=== PATIENT | female | born 1945 | race African-American/Black ===

== ENCOUNTER 2016-10-26 13:06 | Observation (INO) ==
[2016-10-26] MEDS ORDERED: ENOXAPARIN 100 MG/ML SYRINGE SUBCUT STA (13:39)
[2016-10-26] MEDS ORDERED: ASPIRIN 325 MG TABLET PO STA ×2 (13:39→15:17)
--- NOTE | 2016-10-26 14:07 | XRay Report ---
XR chest 1V portable Indication: Chest pain. Chest one view: Comparison 05/16/2015. Given variation in technique, mild interstitial prominence of the lungs has developed, likely airways disease with scattered areas of peribronchial thickening present. No focal pneumonia shown. Heart size remains upper limits normal. Impression: Minimal airways disease such as bronchitis. PROCEDURE INTERPRETED AT [facility] DEPARTMENT OF RADIOLOGY Final Report Signed by: Eb Chacon M.D.
[2016-10-26 14:10] LABS: Basophils # 0.1 10*3/uL (0.0-0.2); Basophils % 0.7 % (0.0-0.8); Eosinophils # 0.1 10*3/uL (0.0-0.87); Eosinophils % 1.5 % (0.00-10.9); Hematocrit 42.3 VOL% (35.7-47.0); Hemoglobin 14.1 GM/DL (12.0-16.0); Immature Granulocytes % 0.5 %; Immature Granulocytes Absolute 0.04 #; Lymphocytes # 2.8 10*3/uL (1.4-4.0); Lymphocytes % 32.2 % (21.3-54.2); Mean Corpuscular HGB Conc 33.3 GM/DL (32-36); Mean Corpuscular Hemoglobin 31 PG (27-34); Mean Corpuscular Volume 91.6 FL (87-102); Mean Platelet Volume 9.9 FL (9.6-12.0); Monocytes # 0.8 10*3/uL (0.11-0.8); Monocytes % 8.7 % (1.7-12.7); Neutrophils % 56.4 % (38.7-73.9); Platelet Count 309 T/CUMM (130-400); Red Blood Count 4.62 MC/CUMM (3.8-5.5); Red Cell Distribution Width 12.9 % (9.3-17.3); White Blood Count 8.8 T/CUMM (4-12)
--- NOTE | 2016-10-26 14:10 | EKG Report ---
Stationary ECG Study [facility] ER Test Date: 10/26/2016 1:18:49 PM Pat Name: BETTY METZ Department: Room: Gender: F Fmd Teacher: Truong Charles : 1945 Requested by: Tarik Mcmanus Order Number: [id number] Reading MD: BRENDON BENSON Intervals [place] Rate: 91 P: 80 SC: 152 QRS: -67 QRSD: 90 T: 73 QT: 373 QTc: 422 Interpretive Statements SINUS RHYTHM POSSIBLE LEFT ATRIAL ENLARGEMENT ABNORMAL LEFT AXIS DEVIATION RSR (QR) IN V1/V2 CONSISTENT WITH RIGHT VENTRICULAR CONDUCTION DELAY SEPTAL INFARCT, AGE UNDETERMINED Electronically Signed On 10-27-16 09:31:12 CDT by BRENDON BENSON [email or web address]
[2016-10-26] MEDS ORDERED: ASPIRIN 325 MG TABLET ONE (14:18)
[2016-10-26] MEDS ORDERED: ENOXAPARIN 100 MG/ML SYRINGE SUBCUT ONE (14:18)
[2016-10-26 14:20] LABS: PT Patient Result 10.3 SECS
[2016-10-26 14:32] LABS: Alanine Aminotransferase 16 U/L (13-56); Alkaline Phosphatase 139 U/L (45-117); Aspartate Amino Transferase 12 U/L (0-37); Calcium 9.2 MG/DL (8.5-10.1)
[2016-10-26 14:33] LABS: Albumin 3.1 G/DL (3.4-5.0); Bilirubin,Total < 0.39 MG/DL (0.2-1.0); Blood Urea Nitrogen 17 MG/DL (7-18); Glucose 250 MG/DL (74-106); Magnesium 1.7 MG/DL (1.8-2.4); Osmolality,Calculated 282.8 MOS/KG (273-304); Potassium 3.6 MMOL/L (3.5-5.1); Sodium 137 MMOL/L (136-145); Total Protein 7.2 G/DL (6.4-8.3)
--- NOTE | 2016-10-26 15:13 | Emergency Department Note ---
Suzanna Suggs Gwan, am scribing for, and in the presence of, Tarik Guerrero MD 13:46. Yolanda Suggs Phillip K, MD, personally performed the services described in this documentation, ascribed by Brent Briseno in my presence, and it is both accurate and complete 511 . Arrival - Arrival Chief Complaint: Chest Pain Stated Complaint: chest tightness ED Nursing Triage Note: Pt c/o Chest tightness and pain with some occasional SOB since Wednesday. Mode of Arrival: Ambulatory Limitations: No Limitations Source: Patient, Old Records Reviewed, RN Notes Reviewed - History of Present Illness HPI Narrative: Patient is a 71 y/o female, with a hx of Pericarditis, who presents to the ED for further evaluation of chest tightness and intermittent SOB with an onset 2 days ago. Patient stated that she had a family member to 2 days ago and this is when her chest discomfort began. Patient stated that she has a hx of Pulmonary Embolism and Carotid Surgery performed. She continued to note that this pain is somewhat similar to that pain. Her discomfort is worsened with exacerbation. She continued to say that she is compliant with her low dose aspirin 1x a day but she did not take it today. While in ED, pt stated that she is not in any discomfort now. Patient denies any pain in calf of bilateral legs. She is followed by Dr. Carpio. No other problems/complaints reported in ED. Onset (ago): day(s) Consistency: constant Severity: moderate Allergies/Adverse Reactions: Allergies Allergy/AdvReac Type Severity Reaction Status Date / Time Penicillins Allergy RASH Verified 12/24/14 11:54 Home Medications: Home Medications Medication Instructions Recorded Confirmed Type Albuterol Sulfate [Proair HFA] 2 puff INH Q4H PRN 05/16/15 08/21/15 History Amlodipine Besylate 5 mg PO DAILY 05/16/15 08/21/15 History Aspirin [Ecotrin] 81 mg PO DAILY 05/16/15 08/21/15 History Atorvastatin [Lipitor] 20 mg PO DAILY 05/16/15 08/21/15 History Dexlansoprazole [Dexilant] 60 mg PO DAILY 05/16/15 08/21/15 History Furosemide Tab [Lasix Tab] 20 mg PO DAILY PRN 05/16/15 08/21/15 History Gabapentin Cap/Tab [Neurontin 300 mg PO TID 05/16/15 08/21/15 History Cap/Tab] Ipratropium/Albuterol Sulfate 3 ml INH QID 05/16/15 08/21/15 History [Iprat-Albut 0.5-3(2.5) mg/3 ml] Oxybutynin Chloride 5 mg PO TID 05/16/15 08/21/15 History Pioglitazone HCl/Metformin HCl 1 each PO BID 05/16/15 08/21/15 History [Actoplus Met 15 mg-500 mg Tab] Potassium Chloride Cap/Tab [K Dur] 10 meq PO DAILY PRN 05/16/15 08/21/15 History Triamterene/Hydrochlorothiazid 1 each PO DAILY 05/16/15 08/21/15 History [Triamterene-Hctz 37.5-25 mg Cp] Verapamil HCl [Verapamil Tab] 120 mg PO BID 05/16/15 08/21/15 History Atenolol [Tenormin] 25 mg PO DAILY #30 tablet 05/21/15 08/21/15 Rx Insulin Lispro [HumaLOG] 10 unit SUBCUT TID W/MEALS ml 05/21/15 08/21/15 Rx Cyclobenzaprine [Flexeril] 10 mg PO TID PRN 08/21/15 08/21/15 History Insulin Detemir [Levemir] 40 unit SUBCUT BEDTIME 08/21/15 08/21/15 History Magnesium Chloride [Mag Delay] 64 mg PO BID 08/21/15 08/21/15 History Sertraline [Zoloft] 25 mg PO DAILY 08/21/15 08/21/15 History Review of System - Review of System 12 point system: reviewed and no additional remarkable complaints except as stated - Review of System Cardiovascular: Present: chest pain, dyspnea on exertion Medical,Surgical,& Family Hx - Medical History Cardio: History of: Hypertension, PVD, Cardiovascular Problems (pericarditis 2007) Psychological: History of: Anxiety Disorders Neurology: History of: Migraine (states about 20 years ago), Peripheral Neuropathy No history of: Seizures Endocrine: History of: Diabetes Mellitus (IDDM), Dyslipidemia No history of: Diabetes Mellitus (NIDDM) Rheumatology: History of;: Fibromyalgia Respiratory: History of: Asthma, Bronchitis, COPD (Patient unsure if has.), Pulmonary Embolism (2008) Genitourinary: History of: Bladder Problem (Incontinent at times) Gastrointestinal: History of: GERD Musculoskeletal: History of: Back/Neck Problems Other: History of: Anaphylaxis (penicillin), Miscellaneous Medical Problems ( FEMORAL STENT) - Surgical History Cardiac Surgeries: Sugical HX of: Cardiac Catheterization (2007) Comment Only: Cardiac Surgery (heart cath without stent) HEENT Surgeries: Surgical HX of: Eye Surgery (cataract surgery) Abdominal Surgeries: Surgical HX of: EGD - Family History Family History: Reports;: Family Cancer (breast cancer--mother), Family Hypertension (father) - Social History Smoking Status: Former smoker Exam Vital Signs: Vital Signs Temperature 96.9 F L 10/26/16 13:17 Pulse Rate 96 H 10/26/16 13:17 Respiratory Rate 18 10/26/16 13:17 Blood Pressure 166/114 10/26/16 13:17 O2 Sat by Pulse Oximetry 98 10/26/16 13:17 - General General appearance: alert, in no apparent distress - Head Head exam: Present: atraumatic, normocephalic - Eye Eye exam: Present: normal appearance, PERRL, EOMI - ENT ENT exam: Present: normal oropharynx, mucous membranes moist, TM's normal bilaterally, normal external ear exam - Neck Neck exam: Present: full ROM, trachea midline. Absent: tenderness - Chest Chest inspection: Present: symmetric chest wall rise. Absent: tenderness - Respiratory Respiratory exam: Present: normal lung sounds bilaterally. Absent: respiratory distress - Cardiovascular Cardiovascular exam: Present: regular rate, normal rhythm, normal heart sounds. Absent: murmur - Abdominal Exam Abdominal exam: Present: soft, normal bowel sounds. Absent: distention, tenderness - Extremities Exam Extremities exam: Present: other (trace edema bilaterally) - Back Exam Back exam: Present: full ROM. Absent: tenderness - Neurological Exam Neurological exam: Present: alert, oriented X3, CN II-XII intact. Absent: motor sensory deficit - Psychiatric Psychiatric exam: Present: normal affect, normal mood - Skin Skin exam: Present: warm, dry, intact, normal color Course Course Narrative: Patient discussed with Dr. Kevin Carpio. Results - Labs CBC & BMP: 10/26/16 13:59 10/26/16 13:59 Lab Results: I have reviewed the patients labs Labs: Laboratory Tests 10/26/16 13:59 WBC 8.8 RBC 4.62 Hgb 14.1 Hct 42.3 Plt Count 309 Laboratory Tests 10/26/16 10/26/16 13:59 13:59 INR 1.0 PT Patient/Control Mix 10.3 Sodium 137 Potassium 3.6 Chloride 100 Carbon Dioxide 28 BUN 17 Creatinine 0.90 Glucose 250 H Magnesium 1.7 L Alkaline Phosphatase 139 H Albumin 3.1 L Globulin 4.1 H Albumin/Globulin Ratio 0.7 L - EKG EKG results: interpreted by ELSIE, sinus rhythm (Possible old septal AK) - Diagnostic Findings Procedure: Chest x-ray: report reviewed by me (Minimal airways disease such as bronchitis.) Disposition Clinical Impression: Chest pain, Unstable angina pectoris Case discussed with: patient Disposition: Still a Patient Condition: Guarded Additional Instructions: Admit to Dr. Carpio.
[2016-10-26] MEDS ORDERED: ACETAMINOPHEN 325 MG TABLET PO PRN (15:17)
[2016-10-26] MEDS ORDERED: DOCUSATE SODIUM 100 MG CAPSULE PO PRN (15:17)
[2016-10-26] MEDS ORDERED: ONDANSETRON 4 MG/2 ML VIAL IV PRN (15:17)
[2016-10-26] MEDS ORDERED: MAGNESIUM SULF RIDER 4 GM in PREMIX 1 EACH IV PRN (15:17)
[2016-10-26] MEDS ORDERED: MAGNESIUM SULF RIDER 2 GM in PREMIX 1 EACH IV PRN (15:17)
--- NOTE | 2016-10-26 18:28 | EKG Report ---
Stationary ECG Study [facility] Test Date: 10/26/2016 6:26:46 PM Pat Name: BETTY METZ Department: Room: 279 Gender: F [employer] Hand: FARHEEN : 1945 Requested by: Tarik Mcmanus Order Number: [id number] Reading MD: JAYRO ARNOLD Intervals [place] Rate: 83 P: 56 MN: 170 QRS: -49 QRSD: 99 T: 31 QT: 387 QTc: 427 Interpretive Statements SINUS RHYTHM WITH SINUS ARRHYTHMIA LEFT ATRIAL ABNORMALITY PATTERN CONSISTENT WITH PULMONARY DISEASE INCOMPLETE RIGHT BUNDLE BRANCH BLOCK LEFT ANTERIOR FASCICULAR BLOCK NONSPECIFIC T-WAVE ABNORMALITY Electronically Signed On 10-27-16 15:45:05 CDT by JAYRO ARNOLD [email or web address]
[2016-10-26] MEDS ORDERED: CYCLOBENZAPRINE 10 MG TABLET PO PRN (20:04)
[2016-10-26] MEDS ORDERED: ALBUTEROL 2.5 MG/3 ML NEB RESP TX PRN (20:04)
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
[2016-10-26] MEDS ORDERED: ATORVASTATIN 20 MG TABLET PO SCH (21:00)
[2016-10-26] MEDS ORDERED: NON-FORMULARY MEDICATION (Insulin Degludec [Tresiba Flextouch U-200] 50 UNIT) SUBCUT SCH (21:00)
[2016-10-26] MEDS ORDERED: SERTRALINE 25 MG TABLET PO PRN (21:00)
[2016-10-26] MEDS: MAGNESIUM CHLORIDE 64 MG TABLET PO SCH (21:35)
[2016-10-26] MEDS: VERAPAMIL 120 MG TABLET PO SCH (21:35)
[2016-10-26] MEDS: GABAPENTIN 300 MG CAPSULE PO SCH (21:36)
--- NOTE | 2016-10-27 07:34 | Family Practice Progress Note ---
Family Practice - PN: Subj Interval history: Patient states she had a good not only had a very brief episode of chest pain. Her cardiac enzymes were all normal this morning. Cnc Operator Programmer is to see her. She has multiple risk factors for coronary artery disease including peripheral vascular disease, diabetes mellitus, hypertension and past history of tobacco abuse. Exam (Progress Note) - Constitutional Vitals: Period Temp Pulse Resp BP Sys/Stock Pulse Ox Last 24 Hr 97.3 F-98.0 F 69-98 15-20 137-175/67-93 16-98 Exam: Objective reveals a well-developed black female no acute distress. She is able give good history. Cardiovascular: Heart rates regular without murmurs or gallops. Respiratory: Lungs clear to auscultation bilaterally. Abdomen: Exam soft and nontender to palpation. Results - Labs CBC & BMP: 10/26/16 13:59 10/26/16 13:59 Lab Results: I have reviewed the past 24 hour labs Assessment and Plan (1) Atypical chest pain Status: Acute Assessment and plan: 10/26/2016: We will continue cardiac isoenzymes. Cardiology has been consulted. Patient does have an impressive array of risk factors for coronary artery disease and she is suffering through multiple stressors at present. 10/27/2016: Cardiac isoenzymes remained negative. Cardiology has been consulted. Patient was reassured that no evidence of an acute NE is present. Current Visit: Yes
[2016-10-27] MEDS ORDERED: metFORMIN 500 MG TABLET PO SCH (08:00)
[2016-10-27] MEDS ORDERED: PIOGLITAZONE 15 MG TABLET PO SCH (08:00)
[2016-10-27] MEDS ORDERED: PANTOPRAZOLE 40 MG TABLET PO SCH (09:00)
[2016-10-27] MEDS ORDERED: ASPIRIN EC 81 MG TABLET PO SCH (09:00)
[2016-10-27] MEDS ORDERED: OXYBUTYNIN 5 MG TABLET PO SCH (09:00)
[2016-10-27] MEDS ORDERED: TRIAMTERENE/HCTZ 37.5-25 MG CAPSULE PO SCH (09:00)
[2016-10-27] MEDS: MAGNESIUM CHLORIDE 64 MG TABLET PO SCH (09:07)
[2016-10-27] MEDS: VERAPAMIL 120 MG TABLET PO SCH (09:07)
[2016-10-27] MEDS: GABAPENTIN 300 MG CAPSULE PO SCH ×2 (09:08→14:08)
[2016-10-27] MEDS: INSULIN LISPRO 100 UNIT/ML SUBCUT SCH ×2 (10:47→13:10)
--- NOTE | 2016-10-27 11:49 | Cardiology Consult Note ---
Assessment and Plan - Time spent with patient Time spent with patient: Greater than 30 minutes (1) Atypical chest pain Status: Acute Assessment and plan: Cardiac biomarkers have been negative. EKG does not reveal any acute findings and is unchanged from previous EKGs. D-dimer is noted to be 0.6 making pulmonary embolism unlikely. Patient's symptoms are very atypical and could possibly secondary her severe stress. Patient has ruled out for myocardial infarction. After further discussing with Dr. Bonner, I think that it is reasonable to set up patient for outpatient stress testing with Dr. Vega. She is agreeable for this. She will be given an appointment with Dr. Vega for stress testing within 1 week. Further plan and addendum to follow per Dr. Bonner. Current Visit: Yes (2) Peripheral artery disease Status: Acute Assessment and plan: This is clinically stable at this time. Will continue current plan of care. Current Visit: No (3) Diabetes mellitus Status: Chronic Assessment and plan: Defer management of this to attending. Current Visit: No Qualifiers: Diabetes mellitus type: type 2 Diabetes mellitus complication detail: with chronic kidney disease Chronic kidney disease stage: stage 3 (moderate) (4) Essential hypertension Status: Chronic Assessment and plan: Blood pressure is suboptimally controlled. I have added Norvasc at this time. We will continue to adjust medications as needed throughout her hospital stay. Current Visit: No (5) Hypomagnesemia Status: Acute Assessment and plan: Magnesium replacement protocol has been ordered. Will check magnesium in the a.m. Current Visit: No (6) Hyperlipidemia Status: Chronic Assessment and plan: Continue current plan of care with lipid lowering agent. Current Visit: Yes History of Present Illness - Data of Consult Patient: known to practice within the last 3 years Consult date: 10/27/16 Requesting Physician: Kevin Carpio Primary care physician: Kevin Carpio - Consult Narrative Reason for consult: Chest pain History of present illness: Bevel Operator: Dr. Vega PCP: Dr. Kevin Carpio Cardiology consult: Chest pain Ms. Fenton is a 71 year old female without known history of coronary artery disease, routinely followed by Dr. Vega. Patient presented to the emergency department yesterday for further evaluation of chest tightness. She has cardiac risk factors significant for diabetes, hypertension peripheral vascular disease, hyperlipidemia, advanced age, sedentary lifestyle and former smoker (quit 8 years ago). Patient denies any significant family history of coronary artery disease. Patient has past medical history of peripheral vascular disease (followed by Dr. Powell), pericardial effusion with pericardial centesis and pulmonary embolism. Patient had right heart catheterization in [address] Vega. At that time PC pressure is noted to be 18, PA pressure about 35/18, RV pressure 35/15 and RA pressure was about 12-15 mmHg. Patient was last seen by Dr. Vega June 2016. At that time, she was without complaints. Patient was in her usual state of health until Wednesday when she began to experience brief episodes of chest tightness. She reports that this originated in her right chest and throughout the day and eventually moved to the middle portion of her chest. This was nonradiating. She describes his pain as a chest tightness that would only last seconds and resolved on its own. It is associated with mild shortness of breath. She denies nausea, diaphoresis and heart racing/palpitations. Patient tells me that at first, she felt that her symptoms were secondary to her GERD. She is unable to identify any specific aggravating or alleviating factors. She reports that this was not worsened with exertion. She also confirms that she has been under a great deal of stress over the past 2 months. She has had several deaths in the family and multiple issues at home. As she was telling me about her stressors, she tells me that she began feeling the same chest tightness that she presented to the emergency room with. This only lasted a couple of seconds and was quickly resolved on its own. Her continued symptoms were very concerning for her and she felt that it was necessary to be further evaluated in the emergency department. Upon arrival to the ER, she reports that her discomfort was not relieved by nitroglycerin. Patient was admitted under family medicine service' s and housed on the telemetry floor. Cardiology has been consulted to further evaluate her chest discomfort. Of note, patient denies any chest pain, heaviness and tightness with exertion or walking. She reports that she cleans her house regularly and she can perform these activities without any chest pain, heaviness and tightness. She denies any recent change in her exercise tolerance or breathing pattern. She denies dyspnea on exertion as well as easy fatigability. She also denies fever , chills, cough, nausea, vomiting, melena, abdominal pain, orthopnea, PND and lower extremity swelling. Patient was seen and examined on the telemetry unit. She is currently without chest pain, heaviness and tightness. Her troponin has been negative 4 checks. EKG does not reveal any acute findings and is unchanged from previous EKGs. D -dimer 0.6. On exam, her chest pain is not reproducible with palpation. Echocardiogram has been ordered at this time. I will further discuss this with Dr. Bonner. Further plan and addendum to follow. CC: Kevin Carpio MD - Home Medications and Allergies Home Medications: Home Medications Medication Instructions Recorded Confirmed Type Albuterol Sulfate [Proair HFA] 2 puff INH Q4H PRN 05/16/15 10/26/16 History Aspirin [Ecotrin] 81 mg PO DAILY 05/16/15 10/26/16 History Atorvastatin [Lipitor] 20 mg PO BEDTIME 05/16/15 10/26/16 History Dexlansoprazole [Dexilant] 60 mg PO DAILY 05/16/15 10/26/16 History Gabapentin Cap/Tab [Neurontin 300 mg PO TID 05/16/15 10/26/16 History Cap/Tab] Ipratropium/Albuterol Sulfate 3 ml INH BID PRN 05/16/15 10/26/16 History [Iprat-Albut 0.5-3(2.5) mg/3 ml] Oxybutynin Chloride 5 mg PO DAILY 05/16/15 10/26/16 History Pioglitazone HCl/Metformin HCl 1 each PO BID 05/16/15 10/26/16 History [Actoplus Met 15 mg-500 mg Tab] Triamterene/Hydrochlorothiazid 1 each PO DAILY 05/16/15 10/26/16 History [Triamterene-Hctz 37.5-25 mg Cp] Verapamil HCl [Verapamil Tab] 120 mg PO BID 05/16/15 10/26/16 History Cyclobenzaprine [Flexeril] 10 mg PO TID PRN 08/21/15 10/26/16 History Magnesium Chloride [Mag Delay] 64 mg PO BID 08/21/15 10/26/16 History Sertraline [Zoloft] 25 mg PO BEDTIME PRN 08/21/15 10/26/16 History Insulin Aspart [NovoLOG FlexPen] 15 unit SUBCUT TID 10/26/16 10/26/16 History Insulin Degludec [Tresiba 50 unit SUBCUT BEDTIME 10/26/16 10/26/16 History Flextouch U-200] Allergies/Adverse Reactions: Allergies Allergy/AdvReac Type Severity Reaction Status Date / Time Penicillins Allergy RASH Verified 12/24/14 11:54 - Constitutional Constitutional: Absent: chills, fatigue, fever(s), lethargy, malaise, weakness, weight gain, weight loss - Cardiovascular Cardiovascular: Present: as per HPI, chest pain at rest, dyspnea. Absent: chest pain with activity, diaphoresis, dyspnea on exertion, edema, radiating jaw , neck or arm pain, lightheadedness, orthopnea, palpitations, PND - Respiratory Respiratory: Present: dyspnea. Absent: cough, hemoptysis, dyspnea on exertion, wheezing, snoring, pain on inspiration, change in phlegm color - Gastrointestinal Gastrointestinal: Present: heartburn. Absent: abdominal pain, change in bowel habits, coffee ground emesis, constipation, diarrhea, hematemesis, hematochezia , loose stools, melena, nausea, vomiting - Neurological Neurological: Absent: abnormal gait, abnormal speech, behavioral changes, dizziness, syncope - Psychiatric Psychiatric: Present: anxiety, depression - Hematologic/Lymphatic Hematologic/Lymphatic: Absent: easy bleeding, easy bruising, lymphadenopathy Medical,Surgical,& Family Hx - Medical History Cardio: History of: Hypertension, PVD, Cardiovascular Problems (pericarditis 2007) Psychological: History of: Anxiety Disorders Neurology: History of: Migraine (states about 20 years ago), Peripheral Neuropathy Endocrine: History of: Diabetes Mellitus (NIDDM), Dyslipidemia Rheumatology: History of;: Fibromyalgia Respiratory: History of: Asthma, Bronchitis, COPD (Patient unsure if has.), Pulmonary Embolism (2007) Genitourinary: History of: Bladder Problem (Incontinent at times) Gastrointestinal: History of: GERD Musculoskeletal: History of: Back/Neck Problems Other: History of: Anaphylaxis (penicillin), Miscellaneous Medical Problems ( FEMORAL STENT) - Surgical History Cardiac Surgeries: Sugical HX of: Cardiac Catheterization (Right heart catheterization in 2006) HEENT Surgeries: Surgical HX of: Eye Surgery (cataract surgery) Abdominal Surgeries: Surgical HX of: EGD - Family History Family History: Reports;: Family Cancer (breast cancer--mother), Family Hypertension (father) Denies;: Family Heart Disease - Social History Smoking Status: Former smoker Frequency of Alcohol Use: None Type of Drug Use: None Physical Examination Vital Signs Temp Pulse Resp BP Pulse Ox 96.9 F L 96 H 18 166/114 98 10/26/16 13:17 10/26/16 13:17 10/26/16 13:17 10/26/16 13:17 10/26/16 13:17 General: Present: Appears Well, No Apparent Distress HEENT: Present: Normocephaly Neck: Present: Supple Neck, Midline Trachea, No JVD/HJR Cardiac: Present: Reg Rate and Rhythm, Regular Rate, Regular Rhythm, S1/S2, No Murmur Lungs: Present: Normal Exam, Clear Ascult./Percussion, Normal Breath Sounds, No Wheeze, Rales, Rhonchi Abdomen: Present: Soft, Active Bowel Sounds, No Masses, Non-Tender. Absent: Firm, Distended Skin: Present: Clear. Absent: Rash, Suspicious Lesions, Ulceration Extremities: Present: Normal Gait, No Clubbing, No Cyanosis, No Edema, Normal Upper Extr. Pulses (Decreased pulse noted to right lower extremity. Patient has history of PVD.) Result/EKG - Labs CBC & BMP: 10/26/16 13:59 10/26/16 13:59 Lab Results: I have reviewed the past 24 hour labs Labs: Laboratory Results - last 24 hr 10/26/16 10/26/16 10/26/16 17:44 19:48 20:24 POC Glucose 346 H Troponin I < 0.015 < 0.015 10/26/16 22:07 POC Glucose Troponin I < 0.015 Specialty Discharge - Follow Up or Referrals Follow up with: Francis Vega MD [Physician] - 1 Week (Patient will need follow-up appointment with Dr. Vega within the week for outpatient stress testing.)
[2016-10-27] MEDS ORDERED: POTASSIUM CHLORIDE RIDER 10 MEQ in PREMIX 1 EACH IV ONE (12:02)
[2016-10-27] MEDS ORDERED: POTASSIUM CHLORIDE RIDER 10 MEQ in PREMIX 1 EACH IV PRN (12:07)
[2016-10-27] MEDS ORDERED: amLODIPine 5 MG TABLET PO SCH (12:30)
[2016-10-27] MEDS ORDERED: POTASSIUM CHLORIDE 20 MEQ TABLET PO ONE (13:45)
[2016-10-27 15:47] VITALS: BP 139/66
--- NOTE | 2016-10-27 16:02 | Discharge Summary ---
Hospital Course - Hospital Course Hospital Course: Patient is a 71-year-old black female who was admitted to the emergency room with substernal chest pain. Patient told me the pain was very brief but had been occurring frequently over the course of the last week. Patient been involved in multiple stressful events in her family and home. Patient does have multiple risk factors for coronary artery disease but her cardiac isoenzymes remained negative and her EKG was unremarkable. I told patient I felt her main issue was with her stressors and cardiology saw her and felt she could be followed up as an outpatient. I certainly agree with this plan has does the patient. She will be discharged today. Diagnosis - Discharge Diagnosis (1) Atypical chest pain Status: Acute Specialty Discharge - Follow Up or Referrals Follow up with: Francis Vega MD [Physician] - 10/29/16 7:45 am (Do not eat or drink after midnight for your stress test on October 29 at 7:45 AM. Patient will need follow-up appointment with Dr. Vega within the week for outpatient stress testing.) Discharge Plan - Discharge Data Disposition: Disch To Home/Self Care Condition at Discharge: Stable Discharge Diet: advance to your usual diet Activity: resume usual activities as tolerated Hygiene: no restrictions Weight Bearing at Discharge: full weight bearing Driving: no restrictions Contact your physician if you experience:: Shortness of breath - Discharge Medications New Acetaminophen Tab [Tylenol Tab] 325 mg PO Q4H PRN #0 tablet PRN Reason: fever, headache/body aches Continue Ipratropium/Albuterol Sulfate [Iprat-Albut 0.5-3(2.5) mg/3 ml] 3 ml INH BID PRN PRN Reason: Shortness Of Breath Dexlansoprazole [Dexilant] 60 mg PO DAILY Verapamil HCl [Verapamil Tab] 120 mg PO BID Triamterene/Hydrochlorothiazid [Triamterene-Hctz 37.5-25 mg Cp] 1 each PO DAILY Albuterol Sulfate [Proair HFA] 2 puff INH Q4H PRN PRN Reason: Shortness Of Breath/Wheezing Oxybutynin Chloride 5 mg PO DAILY Gabapentin Cap/Tab [Neurontin Cap/Tab] 300 mg PO TID Atorvastatin [Lipitor] 20 mg PO BEDTIME Aspirin [Ecotrin] 81 mg PO DAILY Pioglitazone HCl/Metformin HCl [Actoplus Met 15 mg-500 mg Tab] 1 each PO BID Sertraline [Zoloft] 25 mg PO BEDTIME PRN PRN Reason: Sleep Magnesium Chloride [Mag Delay] 64 mg PO BID Cyclobenzaprine [Flexeril] 10 mg PO TID PRN PRN Reason: Spasms Insulin Aspart [NovoLOG FlexPen] 15 unit SUBCUT TID Insulin Degludec [Tresiba Flextouch U-200] 50 unit SUBCUT BEDTIME - Follow Up or Referral Follow Up: Francis Vega MD [Physician] - 10/29/16 7:45 am (Do not eat or drink after midnight for your stress test on , October 29 at 7:45 AM. Patient will need follow-up appointment with Dr. Vega within the week for outpatient stress testing.) Kevin Carpio MD [Family Provider] - 1 Month - Forms/Instructions Instructions: Chest Pain (DC) Exam - Constitutional Vitals: Period Temp Pulse Resp BP Sys/Stock Pulse Ox Last 24 Hr 97.3 F-98.0 F 65-98 15-20 137-175/58-93 95-98 Exam: Objective reveals a well-developed black female no acute distress. She is able give good history. Cardiovascular: Heart rates regular without murmurs or gallops. Respiratory: Lungs clear to auscultation bilaterally. Abdomen: Exam soft and nontender to palpation. Discharge Results Procedures and tests throughout hospitalization: Pending Orders 10/28/16 04:00 BMP w/ Mg [Basic Metabolic Panel w/Mg] IN AM CBC [Comp Blood Count Auto Diff] IN AM 10/29/16 04:00 BMP w/ Mg [Basic Metabolic Panel w/Mg] IN AM CBC [Comp Blood Count Auto Diff] IN AM 10/30/16 04:00 BMP w/ Mg [Basic Metabolic Panel w/Mg] IN AM CBC [Comp Blood Count Auto Diff] IN AM Labs on day of discharge: Labs from last 24 hours 10/27/16 10/26/16 10/26/16 12:27 22:07 20:24 POC Glucose 280 H 346 H Troponin I < 0.015 10/26/16 10/26/16 19:48 17:44 POC Glucose Troponin I < 0.015 < 0.015 Cardiac isoenzymes remain negative. DS: Provider Date of admission: 10/26/16 15:42 Primary care physician: . No PCP Attending physician on admission: Kevin Carpio MD Discharging clinician: Kevin Carpio MD Expected date of discharge: 10/27/16
--- NOTE | 2016-10-28 13:24 | ECHO Report ---
JossyNaman verakumar Exam Date: 10/27/2016 10:28 Referring Physician: Technologist: Kaci Painting CHRISTOPHER Age: 71 Ht (in): 63 Wt (lb): 202 Gender: F Exam Location: [facility] Echo Indications: Chest pain, unspecified, Dyspnea, unspecified, Peripheral vascular disease, unspecified, IDDM BP: 153 / 69 HR: 74 Rhythm: Sinus Technical Quality: IMPRESSIONS Left ventricular ejection fraction is estimated at 55-60 %. Mild concentric left ventricular hypertrophy. Trace mitral valve regurgitation. Trace tricuspid regurgitation. MEASUREMENTS (Male / Female) Normal Values 2D ECHO LV Diastolic Diameter PLAX 4.0 cm 4.2 - 5.9 / 3.9 - 5.3 cm LV Systolic Diameter PLAX 3.0 cm LV Fractional Shortening PLAX 23.9 % IVS Diastolic Thickness 1.2 cm 0.6 - 1.0 / 0.6 - 0.9 cm LVPW Diastolic Thickness 1.2 cm 0.6 - 1.0 / 0.6 - 0.9 cm RV Internal Dim ED PLAX 2.3 cm Aortic Root Diameter 2.8 cm LA Systolic Diameter LX 3.4 cm 3.0 - 4.0 / 2.7 - 3.8 cm DOPPLER TR Peak Velocity 212.0 cm/s TR Peak Gradient 18.0 mmHg FINDINGS Left Ventricle Normal left ventricular cavity size. Mild concentric left ventricular hypertrophy. Left ventricular ejection fraction is estimated at 55-60 %. Right Ventricle The right ventricle is normal in size and function. Right Atrium Normal right atrium. Left Atrium Normal left atrium. Mitral Valve Morphologically normal mitral valve. Trace mitral valve regurgitation. Aortic Valve Morphologically normal aortic valve without significant sclerosis or stenosis. There is no aortic regurgitation. Tricuspid Valve Morphologically normal tricuspid valve. Trace tricuspid regurgitation. Pulmonary artery systolic pressure is normal. Pulmonic Valve Morphologically normal pulmonic valve without significant stenosis. There is no pulmonic regurgitation. Pericardium Normal pericardium without effusion. Aorta Normal ascending aorta dimension. Jac Bonner (Electronically Signed) Final Date: 28 Oct 2016 13:23
== END 2016-10-27 17:35 | disposition home or self-care (01) ==
LOC: N.ED 13:06 → N.EDINP 13:06 → N.TELES 16:22
PROVIDERS: ADMIT Family Medicine; ATTEND Family Medicine

== ENCOUNTER 2019-03-07 17:34 | Inpatient (IN) ==
[2019-03-07] MEDS ORDERED: HYDROmorphone 2 MG/1 ML VIAL IV STA (18:17)
[2019-03-07] MEDS ORDERED: ONDANSETRON 4 MG/2 ML VIAL IV ONE (18:18)
[2019-03-07 18:24] LABS: Basophils # 0.1 10*3/uL (0.0-0.2); Basophils % 0.6 % (0.0-0.8); Eosinophils # 0.2 10*3/uL (0.0-0.87); Eosinophils % 1.7 % (0.00-10.9); Hematocrit 38.3 VOL% (35.7-47.0); Hemoglobin 12.4 GM/DL (12.0-16.0); Immature Granulocytes % 1.1 %; Immature Granulocytes Absolute 0.16 #; Lymphocytes % 13.7 % (21.3-54.2); Mean Corpuscular HGB Conc 32.4 GM/DL (32-36); Mean Corpuscular Volume 93.4 FL (87-102); Mean Platelet Volume 9.7 FL (9.6-12.0); Monocytes % 11.2 % (1.7-12.7); Neutrophils % 71.7 % (38.7-73.9); Platelet Count 441 T/CUMM (130-400); Red Cell Distribution Width 13.7 % (9.3-17.3); White Blood Count 14.4 T/CUMM (4-12)
[2019-03-07] MEDS ORDERED: HEPARIN 5,000 UNIT/1 ML VIAL IV ONE (18:26)
[2019-03-07 18:38] LABS: Calcium 9.3 MG/DL (8.5-10.1); Osmolality,Calculated 274.2 MOS/KG (273-304)
[2019-03-07] MEDS: HEPARIN DRIP 25,000 UNITS/500 ML PREMIX IV SCH (18:45)
[2019-03-07 19:06] LABS: PT Patient Result 10.5 SECS (9.6-12.2); Partial Thromboplastin Time 30.1 SECS (20.8-36.0)
[2019-03-07] MEDS ORDERED: GLUCAGON 1 MG VIAL IM PRN (19:18)
[2019-03-07] MEDS ORDERED: ONDANSETRON 4 MG/2 ML VIAL IV PRN (19:18)
[2019-03-07] MEDS: GABAPENTIN 300 MG CAPSULE PO SCH (21:42)
[2019-03-07] MEDS: INSULIN GLARGINE 100 UNIT/ML SUBCUT SCH (21:44)
[2019-03-08 05:29] LABS: Basophils # 0.1 10*3/uL (0.0-0.2); Basophils % 0.7 % (0.0-0.8); Eosinophils # 0.3 10*3/uL (0.0-0.87); Eosinophils % 2.1 % (0.00-10.9); Hematocrit 37.2 VOL% (35.7-47.0); Hemoglobin 11.9 GM/DL (12.0-16.0); Immature Granulocytes % 1.2 %; Immature Granulocytes Absolute 0.17 #; Lymphocytes # 2.9 10*3/uL (1.4-4.0); Lymphocytes % 19.8 % (21.3-54.2); Mean Corpuscular Volume 94.4 FL (87-102); Mean Platelet Volume 9.7 FL (9.6-12.0); Monocytes % 13.1 % (1.7-12.7); Neutrophils % 63.1 % (38.7-73.9); Platelet Count 447 T/CUMM (130-400); Red Blood Count 3.94 MC/CUMM (3.8-5.5); Red Cell Distribution Width 13.9 % (9.3-17.3); White Blood Count 14.6 T/CUMM (4-12)
[2019-03-08] MEDS ORDERED: HEPARIN 5,000 UNIT/1 ML VIAL IV ONE (06:11)
[2019-03-08] MEDS ORDERED: PANTOPRAZOLE 40 MG TABLET PO SCH (09:00)
[2019-03-08] MEDS: INSULIN LISPRO 100 UNIT/ML SUBCUT SCH ×2 (09:28→17:45)
[2019-03-08] MEDS: VERAPAMIL 120 MG TABLET PO SCH (09:29)
[2019-03-08] MEDS: TRIAMTERENE/HCTZ 37.5-25 MG CAPSULE PO SCH (09:30)
[2019-03-08] MEDS: PANTOPRAZOLE 40 MG TABLET PO SCH (09:35)
[2019-03-08] MEDS: ATORVASTATIN 20 MG TABLET PO SCH (09:35)
[2019-03-08] MEDS: GABAPENTIN 300 MG CAPSULE PO SCH ×2 (09:35→20:44)
[2019-03-08] MEDS: BISOPROLOL 5 MG TABLET PO SCH (09:36)
[2019-03-08] MEDS: HEPARIN DRIP 25,000 UNITS/500 ML PREMIX IV SCH ×2 (19:17→19:54)
[2019-03-08] MEDS: INSULIN GLARGINE 100 UNIT/ML SUBCUT SCH (20:46)
[2019-03-09] MEDS ORDERED: VANCOMYCIN INJ 1,000 MG in SODIUM CHLORIDE 0.9% 250 ML IV ONE (06:30)
[2019-03-09] MEDS: VERAPAMIL 120 MG TABLET PO SCH ×2 (07:41→13:57)
[2019-03-09] MEDS: TRIAMTERENE/HCTZ 37.5-25 MG CAPSULE PO SCH ×2 (07:41→13:57)
[2019-03-09] MEDS: BISOPROLOL 5 MG TABLET PO SCH ×2 (07:41→13:58)
[2019-03-09] MEDS: PANTOPRAZOLE 40 MG TABLET PO SCH ×2 (07:42→13:58)
[2019-03-09] MEDS: INSULIN LISPRO 100 UNIT/ML SUBCUT SCH ×2 (07:49→18:09)
[2019-03-09] MEDS ORDERED: THROMBIN TOPICAL (RECOMBINANT) 5,000 UNIT VIAL TOP ONE (09:06)
[2019-03-09] MEDS ORDERED: HEPARIN 5,000 UNIT/1 ML VIAL ONE (09:06)
[2019-03-09] MEDS ORDERED: VANCOMYCIN 500 MG VIAL ONE (09:06)
[2019-03-09] MEDS ORDERED: LIDOCAINE 1% 20 ML VIAL ONE (09:06)
[2019-03-09] MEDS ORDERED: TISSUE ADHESIVE 1 EACH APPLICATOR TOP ONE (09:07)
[2019-03-09] MEDS ORDERED: LACTATED RINGERS 1,000 ML IV SCH ×2 (09:30→13:30)
[2019-03-09] MEDS ORDERED: VANCOMYCIN 1,000 MG VIAL ONE (10:24)
[2019-03-09] MEDS ORDERED: LIDOCAINE 2% 5 ML VIAL ONE (13:13)
[2019-03-09] MEDS ORDERED: SEVOFLURANE 1 UNIT/15 MINUTE INH ONE (13:14)
[2019-03-09] MEDS ORDERED: ROCURONIUM 100 MG/10 ML VIAL IV ONE (13:14)
[2019-03-09] MEDS ORDERED: ETOMIDATE 40 MG/20 ML VIAL IV ONE (13:14)
[2019-03-09] MEDS ORDERED: fentaNYL 100 MCG/2 ML VIAL ONE (13:14)
[2019-03-09] MEDS ORDERED: MIDAZOLAM 2 MG/2 ML VIAL ONE (13:14)
[2019-03-09] MEDS ORDERED: hydrALAZINE 20 MG/1 ML VIAL IV ONE (13:40)
[2019-03-09] MEDS ORDERED: hydrALAZINE 20 MG/1 ML VIAL ONE (13:41)
[2019-03-09] MEDS: ASPIRIN EC 81 MG TABLET PO SCH (13:57)
[2019-03-09] MEDS: GABAPENTIN 300 MG CAPSULE PO SCH ×2 (13:58→21:59)
[2019-03-09] MEDS: ATORVASTATIN 20 MG TABLET PO SCH (13:58)
[2019-03-09] MEDS ORDERED: HYDROmorphone 2 MG/1 ML VIAL ONE (14:00)
[2019-03-09] MEDS ORDERED: ONDANSETRON 4 MG/2 ML VIAL ONE (14:00)
[2019-03-09] MEDS ORDERED: ONDANSETRON 4 MG/2 ML VIAL IV PRN (14:06)
[2019-03-09] MEDS ORDERED: HYDROmorphone 2 MG/1 ML VIAL IV PRN (14:06)
[2019-03-09] MEDS: HYDROmorphone 2 MG/1 ML VIAL IV PRN ×3 (16:34→23:33)
[2019-03-09] MEDS: INSULIN GLARGINE 100 UNIT/ML SUBCUT SCH (21:59)
[2019-03-10] MEDS: HYDROmorphone 2 MG/1 ML VIAL IV PRN ×2 (05:09→08:07)
[2019-03-10 05:46] LABS: Hematocrit 33.2 VOL% (35.7-47.0); Hemoglobin 10.6 GM/DL (12.0-16.0)
[2019-03-10 06:05] LABS: Calcium 8.6 MG/DL (8.5-10.1); Osmolality,Calculated 271.1 MOS/KG (273-304)
[2019-03-10] MEDS: INSULIN LISPRO 100 UNIT/ML SUBCUT SCH ×2 (08:11→17:40)
[2019-03-10] MEDS: CLOPIDOGREL 75 MG TABLET PO SCH (10:17)
[2019-03-10] MEDS: GABAPENTIN 300 MG CAPSULE PO SCH ×2 (10:17→21:31)
[2019-03-10] MEDS: TRIAMTERENE/HCTZ 37.5-25 MG CAPSULE PO SCH (10:17)
[2019-03-10] MEDS: ATORVASTATIN 20 MG TABLET PO SCH (10:17)
[2019-03-10] MEDS: VERAPAMIL 120 MG TABLET PO SCH (10:17)
[2019-03-10] MEDS: BISOPROLOL 5 MG TABLET PO SCH (10:18)
[2019-03-10] MEDS: PANTOPRAZOLE 40 MG TABLET PO SCH (10:18)
[2019-03-10] MEDS: ASPIRIN EC 81 MG TABLET PO SCH (10:18)
[2019-03-10] MEDS ORDERED: SODIUM CHLORIDE 0.9% 1,000 ML IV SCH (12:00)
[2019-03-10] MEDS ORDERED: HYDROmorphone 2 MG/1 ML VIAL IV PRN (12:12)
[2019-03-10] MEDS ORDERED: NALOXONE 0.4 MG/ML VIAL IV ONE (12:12)
[2019-03-10 12:41] LABS: Basophils # 0.1 10*3/uL (0.0-0.2); Basophils % 0.5 % (0.0-0.8); Eosinophils # 0.2 10*3/uL (0.0-0.87); Eosinophils % 0.7 % (0.00-10.9); Hematocrit 34.6 VOL% (35.7-47.0); Hemoglobin 10.8 GM/DL (12.0-16.0); Immature Granulocytes Absolute 0.45 #; Lymphocytes # 2.2 10*3/uL (1.4-4.0); Lymphocytes % 9.6 % (21.3-54.2); Mean Corpuscular HGB Conc 31.2 GM/DL (32-36); Mean Corpuscular Volume 98.9 FL (87-102); Mean Platelet Volume 9.7 FL (9.6-12.0); Monocytes % 12.5 % (1.7-12.7); NRBC # 0.02 10*3/uL; Neutrophils % 74.7 % (38.7-73.9); Platelet Count 440 T/CUMM (130-400); Red Cell Distribution Width 14.3 % (9.3-17.3); White Blood Count 22.5 T/CUMM (4-12)
[2019-03-10 12:53] LABS: PT Patient Result 11.3 SECS (9.6-12.2); Partial Thromboplastin Time 31.7 SECS (20.8-36.0)
[2019-03-10 12:56] LABS: Alanine Aminotransferase 16 U/L (13-56); Albumin 2.1 G/DL (3.4-5.0); Alkaline Phosphatase 182 U/L (45-117); Aspartate Amino Transferase 17 U/L (0-37); Bilirubin,Total < 0.39 MG/DL (0.2-1.0); Blood Urea Nitrogen 20 MG/DL (7-18); Calcium 8.6 MG/DL (8.5-10.1); Estimated Glom Filtration Rate 49 ML/MIN; Glucose 143 MG/DL (74-106); Osmolality,Calculated 266.7 MOS/KG (273-304); Total Protein 7.5 G/DL (6.4-8.3)
[2019-03-10 13:08] LABS: Anisocytosis Slight; Band Neutrophils 4 % (0-10); Lymphocytes 13 % (20-55); Platelet Estimate Normal; Polychromasia Slight; Segmented Neutrophils 68 % (50-85); Total Cells Counted 100
[2019-03-10 13:09] LABS: Hypochromasia Slight
[2019-03-10] MEDS: BISACODYL 5 MG TABLET PO SCH (16:58)
[2019-03-10] MEDS: TAMSULOSIN 0.4 MG CAPSULE PO SCH (16:58)
[2019-03-10] MEDS: INSULIN GLARGINE 100 UNIT/ML SUBCUT SCH (21:30)
[2019-03-10 22:45] LABS: Apearance,Urine Slightly Hazy (Clear); Bacteria,Urine Occasional /HPF (Few); Bilirubin,Urine Negative (Negative); Blood, Urine Small mg/dL (Negative); Glucose,Urine (UA) Negative (Negative); Ketones,Urine Negative (Negative); Mucus,Urine Occasional /LPF (Occasional); Nitrite,Urine Negative (Negative); Protein,Urine Negative; RBC,Urine 3 /HPF (0-4); Urine Color Yellow (Yellow); Urine Specific Gravity 1.011 (1.001-1.035); Urine Urobilinogen < 2.0 EU/DL (0.2-1.0); WBC,Urine 100 /HPF (0-6)
[2019-03-11 06:08] LABS: Basophils # 0.1 10*3/uL (0.0-0.2); Basophils % 0.5 % (0.0-0.8); Eosinophils # 0.2 10*3/uL (0.0-0.87); Eosinophils % 0.7 % (0.00-10.9); Hemoglobin 9.8 GM/DL (12.0-16.0); Immature Granulocytes % 1.9 %; Immature Granulocytes Absolute 0.44 #; Lymphocytes # 2.2 10*3/uL (1.4-4.0); Lymphocytes % 9.5 % (21.3-54.2); Mean Corpuscular HGB Conc 31.6 GM/DL (32-36); Mean Corpuscular Volume 98.4 FL (87-102); Mean Platelet Volume 9.8 FL (9.6-12.0); Monocytes % 11.4 % (1.7-12.7); Platelet Count 416 T/CUMM (130-400); Red Blood Count 3.15 MC/CUMM (3.8-5.5); Red Cell Distribution Width 14.1 % (9.3-17.3); White Blood Count 22.8 T/CUMM (4-12)
[2019-03-11 06:14] LABS: Calcium 8.7 MG/DL (8.5-10.1); Osmolality,Calculated 268.4 MOS/KG (273-304)
[2019-03-11 07:49] LABS: Lymphocytes 10 % (20-55); Platelet Estimate Increased; Polychromasia Slight; Segmented Neutrophils 80 % (50-85); Total Cells Counted 100
[2019-03-11] MEDS: INSULIN LISPRO 100 UNIT/ML SUBCUT SCH ×2 (07:55→16:53)
[2019-03-11] MEDS ORDERED: KETOROLAC 30 MG/1 ML VIAL IV ONE (09:12)
[2019-03-11] MEDS ORDERED: BISACODYL 5 MG TABLET PO ONE (09:13)
[2019-03-11] MEDS: BISOPROLOL 5 MG TABLET PO SCH (09:15)
[2019-03-11] MEDS: PANTOPRAZOLE 40 MG TABLET PO SCH (09:15)
[2019-03-11] MEDS: TAMSULOSIN 0.4 MG CAPSULE PO SCH (09:15)
[2019-03-11] MEDS: GABAPENTIN 300 MG CAPSULE PO SCH ×2 (09:15→22:18)
[2019-03-11] MEDS: ASPIRIN EC 81 MG TABLET PO SCH (09:15)
[2019-03-11] MEDS: BISACODYL 5 MG TABLET PO SCH (09:15)
[2019-03-11] MEDS: TRIAMTERENE/HCTZ 37.5-25 MG CAPSULE PO SCH (09:15)
[2019-03-11] MEDS: CLOPIDOGREL 75 MG TABLET PO SCH (09:15)
[2019-03-11] MEDS: ATORVASTATIN 20 MG TABLET PO SCH (09:16)
[2019-03-11] MEDS: VERAPAMIL 120 MG TABLET PO SCH (09:16)
[2019-03-11] MEDS: ACETAMINOPHEN 325 MG TABLET PO PRN (13:21)
[2019-03-11] MEDS: KETOROLAC 10 MG TABLET PO SCH ×2 (13:21→18:18)
[2019-03-11] MEDS ORDERED: NALOXONE 0.4 MG/ML VIAL ONE (21:48)
[2019-03-11] MEDS: NALOXONE 0.4 MG/ML VIAL IV PRN ×2 (21:50→22:03)
[2019-03-11] MEDS: INSULIN GLARGINE 100 UNIT/ML SUBCUT SCH (22:17)
[2019-03-11] MEDS ORDERED: MEROPENEM 1,000 MG in SODIUM CHLORIDE 0.9% 100 ML IV SCH (22:30)
[2019-03-11] MEDS ORDERED: GENTAMICIN INJ 120 MG in PREMIX 1 EACH IV ONE (22:32)
[2019-03-11] MEDS ORDERED: SODIUM CHLORIDE 0.9% 500 ML IV ONE (22:33)
[2019-03-11 23:00] LABS: ABG Base Excess 0.6 MMOL/L (-2.5-2.5); ABG Oxygen Saturation 97.4 % (95-100); ABG PCO2 47.4 MM HG (35-48); ABG PH 7.357 (7.35-7.45); ABG PO2 96.6 MM HG (80-95); ABG TCO2 24.3 MMOL/L (23-27); Allen Test Positive
[2019-03-11] MEDS ORDERED: SODIUM CHLORIDE 0.45% 1,000 ML IV SCH (23:00)
[2019-03-12] MEDS: KETOROLAC 10 MG TABLET PO SCH (01:51)
[2019-03-12] MEDS: KETOROLAC 15 MG/1 ML VIAL IV SCH ×4 (02:16→21:05)
[2019-03-12 02:36] LABS: Barbiturates Screen,Urine Negative (Negative); Benzodiazepines Screen,Urine Negative (Negative); Cannabinoid Screen,Urine Negative (Negative); Opiate Screen,Urine Positive (Negative); Phencyclidine Screen,Urine Negative (Negative)
[2019-03-12 05:01] LABS: Basophils # 0.1 10*3/uL (0.0-0.2); Basophils % 0.3 % (0.0-0.8); Eosinophils # 0.1 10*3/uL (0.0-0.87); Eosinophils % 0.2 % (0.00-10.9); Hematocrit 27.9 VOL% (35.7-47.0); Hemoglobin 8.7 GM/DL (12.0-16.0); Immature Granulocytes % 3.5 %; Immature Granulocytes Absolute 1.25 #; Lymphocytes # 1.3 10*3/uL (1.4-4.0); Lymphocytes % 3.6 % (21.3-54.2); Mean Corpuscular HGB Conc 31.2 GM/DL (32-36); Mean Corpuscular Volume 97.2 FL (87-102); Mean Platelet Volume 10.1 FL (9.6-12.0); Monocytes % 7.2 % (1.7-12.7); Neutrophils % 85.2 % (38.7-73.9); Platelet Count 411 T/CUMM (130-400); Red Blood Count 2.87 MC/CUMM (3.8-5.5); Red Cell Distribution Width 14.3 % (9.3-17.3); White Blood Count 35.8 T/CUMM (4-12)
[2019-03-12 05:28] LABS: Lymphocytes 1 % (20-55); Segmented Neutrophils 94 % (50-85); Total Cells Counted 100
[2019-03-12 05:29] LABS: Anisocytosis Slight; Hypochromasia Slight; Microcytosis Slight
[2019-03-12 05:30] LABS: Albumin 1.6 G/DL (3.4-5.0); Bilirubin,Total 0.7 MG/DL (0.2-1.0); Calcium 8.6 MG/DL (8.5-10.1); Osmolality,Calculated 279.5 MOS/KG (273-304); Platelet Estimate Normal; Polychromasia Slight; Total Protein 6.2 G/DL (6.4-8.3)
[2019-03-12] MEDS ORDERED: GENTAMICIN INJ 80 MG in PREMIX 1 EACH IV SCH (08:00)
[2019-03-12] MEDS: BISOPROLOL 5 MG TABLET PO SCH ×2 (08:14→08:52)
[2019-03-12] MEDS: ASPIRIN EC 81 MG TABLET PO SCH ×2 (08:14→08:50)
[2019-03-12] MEDS: TAMSULOSIN 0.4 MG CAPSULE PO SCH ×2 (08:15→08:51)
[2019-03-12] MEDS: PANTOPRAZOLE 40 MG TABLET PO SCH ×2 (08:15→08:51)
[2019-03-12] MEDS: VERAPAMIL 120 MG TABLET PO SCH ×2 (08:15→08:50)
[2019-03-12] MEDS: ATORVASTATIN 20 MG TABLET PO SCH ×2 (08:15→08:51)
[2019-03-12] MEDS: CLOPIDOGREL 75 MG TABLET PO SCH ×2 (08:15→08:51)
[2019-03-12] MEDS: INSULIN LISPRO 100 UNIT/ML SUBCUT SCH ×2 (08:15→19:18)
[2019-03-12] MEDS: GABAPENTIN 300 MG CAPSULE PO SCH ×3 (08:15→21:05)
[2019-03-12] MEDS: BISACODYL 5 MG TABLET PO SCH (08:50)
[2019-03-12] MEDS: TRIAMTERENE/HCTZ 37.5-25 MG CAPSULE PO SCH (08:50)
[2019-03-12] MEDS ORDERED: Semaglutide [Ozempic] 0.25 MG SUBCUT SCH (09:00)
[2019-03-12] MEDS ORDERED: CIPROFLOXACIN INJ 400 MG in PREMIX 1 EACH IV SCH (09:00)
[2019-03-12] MEDS: SODIUM CHLORIDE 0.9% 1,000 ML IV SCH (09:18)
[2019-03-12] MEDS ORDERED: LACTULOSE 20 GM/30 ML UDCUP PO PRN (10:58)
[2019-03-12] MEDS ORDERED: BISACODYL 10 MG SUPP RECTAL ONE (11:00)
[2019-03-12] MEDS ORDERED: GENTAMICIN IV SCH (12:00)
[2019-03-12] MEDS ORDERED: SODIUM CHLORIDE 0.9% IV SCH (12:00)
[2019-03-12] MEDS: cefTRIAXone 2,000 MG in SYRINGE 1 EACH IV SCH (14:29)
[2019-03-12] MEDS: VANCOMYCIN INJ 1,250 MG in SODIUM CHLORIDE 0.9% 250 ML IV SCH (16:32)
[2019-03-12] MEDS: ACYCLOVIR INJ 750 MG in SODIUM CHLORIDE 0.9% 250 ML IV SCH ×2 (16:32→21:06)
[2019-03-12] MEDS: INSULIN GLARGINE 100 UNIT/ML SUBCUT SCH (21:05)
[2019-03-13] MEDS: cefTRIAXone 2,000 MG in SYRINGE 1 EACH IV SCH ×2 (02:15→15:00)
[2019-03-13] MEDS: KETOROLAC 15 MG/1 ML VIAL IV SCH ×3 (02:22→18:58)
[2019-03-13] MEDS: SODIUM CHLORIDE 0.9% 1,000 ML IV SCH (06:20)
[2019-03-13] MEDS: ACYCLOVIR INJ 750 MG in SODIUM CHLORIDE 0.9% 250 ML IV SCH ×3 (06:20→21:16)
[2019-03-13] MEDS: TRIAMTERENE/HCTZ 37.5-25 MG CAPSULE PO SCH (10:11)
[2019-03-13] MEDS: INSULIN LISPRO 100 UNIT/ML SUBCUT SCH ×2 (10:13→18:42)
[2019-03-13] MEDS: TAMSULOSIN 0.4 MG CAPSULE PO SCH (10:14)
[2019-03-13] MEDS: BISACODYL 5 MG TABLET PO SCH (10:14)
[2019-03-13] MEDS: ATORVASTATIN 20 MG TABLET PO SCH (10:14)
[2019-03-13] MEDS: VERAPAMIL 120 MG TABLET PO SCH (10:14)
[2019-03-13] MEDS: PANTOPRAZOLE 40 MG TABLET PO SCH (10:14)
[2019-03-13] MEDS: GABAPENTIN 300 MG CAPSULE PO SCH ×2 (10:14→21:15)
[2019-03-13] MEDS: BISOPROLOL 5 MG TABLET PO SCH (10:15)
[2019-03-13] MEDS: ASPIRIN EC 81 MG TABLET PO SCH (10:15)
[2019-03-13] MEDS: CLOPIDOGREL 75 MG TABLET PO SCH (13:00)
[2019-03-13] MEDS: VANCOMYCIN INJ 1,250 MG in SODIUM CHLORIDE 0.9% 250 ML IV SCH (15:30)
[2019-03-13] MEDS: INSULIN GLARGINE 100 UNIT/ML SUBCUT SCH (21:15)
[2019-03-14] MEDS: cefTRIAXone 2,000 MG in SYRINGE 1 EACH IV SCH ×2 (01:40→13:11)
[2019-03-14 04:22] LABS: Basophils # 0.1 10*3/uL (0.0-0.2); Basophils % 0.3 % (0.0-0.8); Eosinophils # 0.2 10*3/uL (0.0-0.87); Eosinophils % 0.6 % (0.00-10.9); Hematocrit 26.5 VOL% (35.7-47.0); Hemoglobin 8.3 GM/DL (12.0-16.0); Immature Granulocytes % 3.7 %; Immature Granulocytes Absolute 1.24 #; Lymphocytes # 2.4 10*3/uL (1.4-4.0); Lymphocytes % 7.2 % (21.3-54.2); Mean Corpuscular HGB Conc 31.3 GM/DL (32-36); Mean Corpuscular Volume 96.4 FL (87-102); Neutrophils % 80.2 % (38.7-73.9); Platelet Count 423 T/CUMM (130-400); Red Blood Count 2.75 MC/CUMM (3.8-5.5); Red Cell Distribution Width 14.7 % (9.3-17.3); White Blood Count 33.7 T/CUMM (4-12)
[2019-03-14 04:44] LABS: Band Neutrophils 1 % (0-10); Eosinophils 2 % (0-10); Hypochromasia 1+; Lymphocytes 8 % (20-55); Microcytosis Slight; Platelet Estimate Adequate; Segmented Neutrophils 83 % (50-85); Total Cells Counted 100
[2019-03-14 04:47] LABS: Calcium 7.9 MG/DL (8.5-10.1); Osmolality,Calculated 278.4 MOS/KG (273-304)
[2019-03-14] MEDS: DEXTROSE 10% 250 ML BAG IV PRN (04:55)
[2019-03-14] MEDS: ACYCLOVIR INJ 750 MG in SODIUM CHLORIDE 0.9% 250 ML IV SCH ×3 (05:34→21:30)
[2019-03-14] MEDS: INSULIN LISPRO 100 UNIT/ML SUBCUT SCH ×2 (08:33→18:21)
[2019-03-14] MEDS: GABAPENTIN 300 MG CAPSULE PO SCH ×2 (09:06→21:27)
[2019-03-14] MEDS: BISOPROLOL 5 MG TABLET PO SCH (09:06)
[2019-03-14] MEDS: TRIAMTERENE/HCTZ 37.5-25 MG CAPSULE PO SCH (09:06)
[2019-03-14] MEDS: ATORVASTATIN 20 MG TABLET PO SCH (09:06)
[2019-03-14] MEDS: BISACODYL 5 MG TABLET PO SCH (09:06)
[2019-03-14] MEDS: PANTOPRAZOLE 40 MG TABLET PO SCH (09:06)
[2019-03-14] MEDS: TAMSULOSIN 0.4 MG CAPSULE PO SCH (09:06)
[2019-03-14] MEDS: ASPIRIN EC 81 MG TABLET PO SCH (09:06)
[2019-03-14] MEDS: VERAPAMIL 120 MG TABLET PO SCH (09:06)
[2019-03-14] MEDS: CLOPIDOGREL 75 MG TABLET PO SCH (09:06)
[2019-03-14] MEDS: ENOXAPARIN 40 MG/0.4 ML SYRINGE SUBCUT SCH (12:30)
[2019-03-14] MEDS: VANCOMYCIN 50 MG/ML 60 ML/BOTTLE PO SCH ×2 (12:30→18:21)
[2019-03-14] MEDS: VANCOMYCIN INJ 1,250 MG in SODIUM CHLORIDE 0.9% 250 ML IV SCH (15:20)
[2019-03-14] MEDS: INSULIN GLARGINE 100 UNIT/ML SUBCUT SCH (21:27)
[2019-03-15] MEDS: VANCOMYCIN 50 MG/ML 60 ML/BOTTLE PO SCH ×4 (00:26→18:15)
[2019-03-15] MEDS ORDERED: cloNIDine 0.1 MG TABLET PO ONE (03:25)
[2019-03-15] MEDS ORDERED: hydrALAZINE 20 MG/1 ML VIAL IV PRN (07:15)
[2019-03-15] MEDS: INSULIN LISPRO 100 UNIT/ML SUBCUT SCH (08:46)
[2019-03-15] MEDS ORDERED: cloNIDine 0.1 MG TABLET PO SCH (09:00)
[2019-03-15] MEDS: DEXTROSE 10% 250 ML BAG IV PRN (09:00)
[2019-03-15] MEDS: ASPIRIN EC 81 MG TABLET PO SCH (10:02)
[2019-03-15] MEDS: ATORVASTATIN 20 MG TABLET PO SCH (10:02)
[2019-03-15] MEDS: BISOPROLOL 5 MG TABLET PO SCH (10:03)
[2019-03-15] MEDS: TRIAMTERENE/HCTZ 37.5-25 MG CAPSULE PO SCH (10:03)
[2019-03-15] MEDS: amLODIPine 5 MG TABLET PO SCH (10:04)
[2019-03-15] MEDS: TAMSULOSIN 0.4 MG CAPSULE PO SCH (10:04)
[2019-03-15] MEDS: PANTOPRAZOLE 40 MG TABLET PO SCH (10:04)
[2019-03-15] MEDS: CLOPIDOGREL 75 MG TABLET PO SCH (10:04)
[2019-03-15] MEDS: GABAPENTIN 300 MG CAPSULE PO SCH ×2 (10:04→21:24)
[2019-03-15] MEDS: METHENAMINE HIPPURATE 1 GM TABLET PO SCH ×2 (10:09→21:24)
[2019-03-15] MEDS: ENOXAPARIN 40 MG/0.4 ML SYRINGE SUBCUT SCH (11:38)
[2019-03-15] MEDS: VANCOMYCIN INJ 1,250 MG in SODIUM CHLORIDE 0.9% 250 ML IV SCH (15:45)
[2019-03-15] MEDS: INSULIN GLARGINE 100 UNIT/ML SUBCUT SCH ×2 (21:23→21:30)
[2019-03-16] MEDS: VANCOMYCIN 50 MG/ML 60 ML/BOTTLE PO SCH ×4 (00:16→18:11)
[2019-03-16 08:40] LABS: Basophils # 0.1 10*3/uL (0.0-0.2); Basophils % 0.4 % (0.0-0.8); Eosinophils # 0.3 10*3/uL (0.0-0.87); Eosinophils % 1.1 % (0.00-10.9); Hematocrit 28.3 VOL% (35.7-47.0); Hemoglobin 8.8 GM/DL (12.0-16.0); Immature Granulocytes % 8.8 %; Immature Granulocytes Absolute 2.79 #; Lymphocytes # 4.1 10*3/uL (1.4-4.0); Mean Corpuscular HGB Conc 31.1 GM/DL (32-36); Mean Corpuscular Volume 95.3 FL (87-102); Monocytes % 10.1 % (1.7-12.7); Neutrophils % 66.6 % (38.7-73.9); Platelet Count 519 T/CUMM (130-400); Red Blood Count 2.97 MC/CUMM (3.8-5.5); Red Cell Distribution Width 14.9 % (9.3-17.3); White Blood Count 31.8 T/CUMM (4-12)
[2019-03-16] MEDS: PANTOPRAZOLE 40 MG TABLET PO SCH (08:48)
[2019-03-16] MEDS: CLOPIDOGREL 75 MG TABLET PO SCH (08:48)
[2019-03-16] MEDS: TAMSULOSIN 0.4 MG CAPSULE PO SCH (08:49)
[2019-03-16] MEDS: amLODIPine 5 MG TABLET PO SCH (08:49)
[2019-03-16] MEDS: ATORVASTATIN 20 MG TABLET PO SCH (08:49)
[2019-03-16] MEDS: GABAPENTIN 300 MG CAPSULE PO SCH ×2 (08:49→20:41)
[2019-03-16] MEDS: METHENAMINE HIPPURATE 1 GM TABLET PO SCH ×2 (08:49→20:41)
[2019-03-16] MEDS: ASPIRIN EC 81 MG TABLET PO SCH (08:49)
[2019-03-16] MEDS: TRIAMTERENE/HCTZ 37.5-25 MG CAPSULE PO SCH (08:50)
[2019-03-16] MEDS: BISOPROLOL 5 MG TABLET PO SCH (08:51)
[2019-03-16 09:00] LABS: Band Neutrophils 1 % (0-10); Eosinophils 5 % (0-10); Hypochromasia 1+; Lymphocytes 15 % (20-55); Microcytosis Slight; Nucleated Red Blood Cells 1 (0-5); Platelet Estimate Increased; Segmented Neutrophils 69 % (50-85); Total Cells Counted 100
[2019-03-16 09:04] LABS: Calcium 8.8 MG/DL (8.5-10.1)
[2019-03-16] MEDS ORDERED: VANCOMYCIN INJ 1,250 MG in SODIUM CHLORIDE 0.9% 250 ML IV SCH (10:00)
[2019-03-16] MEDS: ENOXAPARIN 40 MG/0.4 ML SYRINGE SUBCUT SCH (10:28)
[2019-03-16] MEDS: ACETAMINOPHEN 325 MG TABLET PO PRN (18:15)
[2019-03-17] MEDS: INSULIN GLARGINE 100 UNIT/ML SUBCUT SCH (00:03)
[2019-03-17] MEDS: VANCOMYCIN 50 MG/ML 60 ML/BOTTLE PO SCH ×3 (00:05→12:36)
[2019-03-17] MEDS: GABAPENTIN 300 MG CAPSULE PO SCH (08:54)
[2019-03-17] MEDS: ASPIRIN EC 81 MG TABLET PO SCH (08:54)
[2019-03-17] MEDS: amLODIPine 5 MG TABLET PO SCH (08:54)
[2019-03-17] MEDS: CLOPIDOGREL 75 MG TABLET PO SCH (08:54)
[2019-03-17] MEDS: PANTOPRAZOLE 40 MG TABLET PO SCH (08:54)
[2019-03-17] MEDS: TAMSULOSIN 0.4 MG CAPSULE PO SCH (08:54)
[2019-03-17] MEDS: ATORVASTATIN 20 MG TABLET PO SCH (08:54)
[2019-03-17] MEDS: BISOPROLOL 5 MG TABLET PO SCH (08:55)
[2019-03-17] MEDS: TRIAMTERENE/HCTZ 37.5-25 MG CAPSULE PO SCH (08:55)
[2019-03-17] MEDS: METHENAMINE HIPPURATE 1 GM TABLET PO SCH (08:55)
[2019-03-17] MEDS: ENOXAPARIN 40 MG/0.4 ML SYRINGE SUBCUT SCH (11:20)
[2019-03-17 12:04] VITALS: BP 146/68
[2019-03-17] MEDS ORDERED: INSULIN REGULAR 100 UNIT/ML SUBCUT ONE (13:00)
[2019-03-17] MEDS ORDERED: INSULIN GLARGINE 100 UNIT/ML SUBCUT ONE (13:00)
== END 2019-03-17 12:45 | disposition hospice, home (50) | DRG 252 ==
LOC: N.ED 17:34 → N.EDINP 19:18 → N.3E 19:48 → N.CC 03-11 22:14 → N.2E 03-15 18:35
PROVIDERS: ADMIT Surgery; ATTEND Surgery

== ENCOUNTER 2019-03-25 18:34 | Inpatient (IN) ==
[2019-03-25] MEDS ORDERED: ONDANSETRON 4 MG/2 ML VIAL IV PRN (21:51)
[2019-03-25] MEDS ORDERED: DEXTROSE 50% 25 GM/50 ML VIAL IV PRN (22:00)
[2019-03-25] MEDS ORDERED: GLUCAGON 1 MG VIAL IM PRN (22:00)
[2019-03-25 22:59] LABS: Basophils # 0.1 10*3/uL (0.0-0.2); Basophils % 0.7 % (0.0-0.8); Eosinophils # 0.3 10*3/uL (0.0-0.87); Eosinophils % 1.9 % (0.00-10.9); Hematocrit 27.2 VOL% (35.7-47.0); Hemoglobin 8.4 GM/DL (12.0-16.0); Immature Granulocytes % 0.8 %; Immature Granulocytes Absolute 0.12 #; Lymphocytes # 3.2 10*3/uL (1.4-4.0); Lymphocytes % 21.3 % (21.3-54.2); Mean Corpuscular HGB Conc 30.9 GM/DL (32-36); Mean Corpuscular Volume 97.5 FL (87-102); Monocytes % 9.3 % (1.7-12.7); Platelet Count 613 T/CUMM (130-400); Red Blood Count 2.79 MC/CUMM (3.8-5.5); Red Cell Distribution Width 14.6 % (9.3-17.3); White Blood Count 15.2 T/CUMM (4-12)
[2019-03-25] MEDS: INSULIN LISPRO 100 UNIT/ML SUBCUT SCH (22:59)
[2019-03-25] MEDS: VERAPAMIL 120 MG TABLET PO SCH (23:06)
[2019-03-25] MEDS: GABAPENTIN 300 MG CAPSULE PO SCH (23:06)
[2019-03-25] MEDS: METHENAMINE HIPPURATE 1 GM TABLET PO SCH (23:06)
[2019-03-25] MEDS: ENOXAPARIN 40 MG/0.4 ML SYRINGE SUBCUT SCH (23:06)
[2019-03-25] MEDS: VANCOMYCIN 50 MG/ML 60 ML/BOTTLE PO SCH (23:06)
[2019-03-25 23:14] LABS: Alanine Aminotransferase 26 U/L (13-56); Alkaline Phosphatase 194 U/L (45-117); Aspartate Amino Transferase 16 U/L (0-37); Bilirubin,Total < 0.39 MG/DL (0.2-1.0); Blood Urea Nitrogen 23 MG/DL (7-18); Calcium 8.9 MG/DL (8.5-10.1); Estimated Glom Filtration Rate 47 ML/MIN; Glucose 168 MG/DL (74-106); Osmolality,Calculated 284.5 MOS/KG (273-304); Total Protein 7.8 G/DL (6.4-8.3)
[2019-03-26 05:10] LABS: Basophils # 0.1 10*3/uL (0.0-0.2); Basophils % 0.7 % (0.0-0.8); Eosinophils # 0.3 10*3/uL (0.0-0.87); Eosinophils % 2.2 % (0.00-10.9); Hematocrit 25.7 VOL% (35.7-47.0); Hemoglobin 8.2 GM/DL (12.0-16.0); Immature Granulocytes % 0.8 %; Immature Granulocytes Absolute 0.11 #; Lymphocytes # 2.5 10*3/uL (1.4-4.0); Lymphocytes % 19.1 % (21.3-54.2); Mean Corpuscular HGB Conc 31.9 GM/DL (32-36); Mean Corpuscular Volume 95.5 FL (87-102); Monocytes % 9.6 % (1.7-12.7); Neutrophils % 67.6 % (38.7-73.9); Platelet Count 573 T/CUMM (130-400); Red Blood Count 2.69 MC/CUMM (3.8-5.5); Red Cell Distribution Width 14.7 % (9.3-17.3); White Blood Count 13.3 T/CUMM (4-12)
[2019-03-26 05:31] LABS: Albumin 1.9 G/DL (3.4-5.0); Bilirubin,Total 0.4 MG/DL (0.2-1.0); Calcium 8.6 MG/DL (8.5-10.1); Osmolality,Calculated 287.4 MOS/KG (273-304); Total Protein 7.3 G/DL (6.4-8.3)
[2019-03-26] MEDS: VANCOMYCIN 50 MG/ML 60 ML/BOTTLE PO SCH ×3 (06:14→17:20)
[2019-03-26 07:53] LABS: Amorphous Crystals,Urine Occasional /HPF (Few); Apearance,Urine Slightly Hazy (Clear); Bacteria,Urine Occasional /HPF (Few); Bilirubin,Urine Negative (Negative); Blood, Urine Small mg/dL (Negative); Glucose,Urine (UA) Negative (Negative); Ketones,Urine Negative (Negative); Mucus,Urine Occasional /LPF (Occasional); Nitrite,Urine Negative (Negative); Protein,Urine Negative; RBC,Urine 6 /HPF (0-4); Squamous Epithelial Cell,Urine Occasional /HPF (0-10); Urine Color Yellow (Yellow); Urine Specific Gravity 1.015 (1.001-1.035); Urine Urobilinogen < 2.0 EU/DL (0.2-1.0); WBC,Urine 19 /HPF (0-6)
[2019-03-26] MEDS: ASPIRIN EC 81 MG TABLET PO SCH (09:24)
[2019-03-26] MEDS: GABAPENTIN 300 MG CAPSULE PO SCH ×2 (09:24→21:12)
[2019-03-26] MEDS: VERAPAMIL 120 MG TABLET PO SCH ×2 (09:24→21:12)
[2019-03-26] MEDS: amLODIPine 5 MG TABLET PO SCH (09:24)
[2019-03-26] MEDS: METHENAMINE HIPPURATE 1 GM TABLET PO SCH ×2 (09:24→21:11)
[2019-03-26] MEDS: TRIAMTERENE/HCTZ 37.5-25 MG CAPSULE PO SCH (09:24)
[2019-03-26] MEDS: BISOPROLOL 5 MG TABLET PO SCH (09:24)
[2019-03-26] MEDS: CILOSTAZOL 100 MG TABLET PO SCH ×2 (09:24→21:12)
[2019-03-26] MEDS: CLOPIDOGREL 75 MG TABLET PO SCH (09:25)
[2019-03-26] MEDS: PANTOPRAZOLE 40 MG TABLET PO SCH (09:25)
[2019-03-26] MEDS: TAMSULOSIN 0.4 MG CAPSULE PO SCH (09:25)
[2019-03-26] MEDS: DOCUSATE SODIUM 100 MG CAPSULE PO SCH ×2 (09:25→21:13)
[2019-03-26] MEDS: INSULIN LISPRO 100 UNIT/ML SUBCUT SCH ×6 (09:27→21:12)
[2019-03-26] MEDS: INSULIN GLARGINE 100 UNIT/ML SUBCUT SCH ×2 (09:28→21:12)
[2019-03-26] MEDS: ATORVASTATIN 40 MG TABLET PO SCH (10:33)
[2019-03-26] MEDS: ACETAMINOPHEN 325 MG TABLET PO PRN (10:33)
[2019-03-26] MEDS ORDERED: Semaglutide [Ozempic] 0.25 MG SUBCUT SCH (12:00)
[2019-03-26] MEDS: SODIUM CHLORIDE 0.9% 1,000 ML IV SCH (13:30)
[2019-03-26] MEDS: ENOXAPARIN 40 MG/0.4 ML SYRINGE SUBCUT SCH (21:12)
[2019-03-27] MEDS: VANCOMYCIN 50 MG/ML 60 ML/BOTTLE PO SCH ×4 (00:20→18:10)
[2019-03-27] MEDS: SODIUM CHLORIDE 0.9% 1,000 ML IV SCH (02:57)
[2019-03-27 05:05] LABS: Basophils # 0.1 10*3/uL (0.0-0.2); Basophils % 0.5 % (0.0-0.8); Eosinophils # 0.4 10*3/uL (0.0-0.87); Eosinophils % 2.8 % (0.00-10.9); Hematocrit 24.9 VOL% (35.7-47.0); Hemoglobin 7.7 GM/DL (12.0-16.0); Immature Granulocytes % 0.8 %; Immature Granulocytes Absolute 0.11 #; Lymphocytes # 3.2 10*3/uL (1.4-4.0); Lymphocytes % 24.6 % (21.3-54.2); Mean Corpuscular HGB Conc 30.9 GM/DL (32-36); Mean Corpuscular Volume 96.1 FL (87-102); Mean Platelet Volume 9.4 FL (9.6-12.0); Monocytes % 10.1 % (1.7-12.7); Neutrophils % 61.2 % (38.7-73.9); Platelet Count 568 T/CUMM (130-400); Red Blood Count 2.59 MC/CUMM (3.8-5.5); Red Cell Distribution Width 14.7 % (9.3-17.3)
[2019-03-27 05:30] LABS: Calcium 8.4 MG/DL (8.5-10.1); Osmolality,Calculated 281.4 MOS/KG (273-304)
[2019-03-27] MEDS: BISOPROLOL 5 MG TABLET PO SCH (08:54)
[2019-03-27] MEDS: METHENAMINE HIPPURATE 1 GM TABLET PO SCH ×2 (08:55→21:16)
[2019-03-27] MEDS: GABAPENTIN 300 MG CAPSULE PO SCH ×2 (08:55→21:16)
[2019-03-27] MEDS: ASPIRIN EC 81 MG TABLET PO SCH (08:55)
[2019-03-27] MEDS: TRIAMTERENE/HCTZ 37.5-25 MG CAPSULE PO SCH (08:55)
[2019-03-27] MEDS: PANTOPRAZOLE 40 MG TABLET PO SCH (08:56)
[2019-03-27] MEDS: amLODIPine 5 MG TABLET PO SCH (08:56)
[2019-03-27] MEDS: ATORVASTATIN 40 MG TABLET PO SCH (08:56)
[2019-03-27] MEDS: VERAPAMIL 120 MG TABLET PO SCH ×2 (08:56→21:16)
[2019-03-27] MEDS: CLOPIDOGREL 75 MG TABLET PO SCH (08:56)
[2019-03-27] MEDS: DOCUSATE SODIUM 100 MG CAPSULE PO SCH ×2 (08:56→21:15)
[2019-03-27] MEDS: CILOSTAZOL 100 MG TABLET PO SCH ×2 (08:57→21:16)
[2019-03-27] MEDS: INSULIN LISPRO 100 UNIT/ML SUBCUT SCH ×6 (08:57→21:13)
[2019-03-27] MEDS: INSULIN GLARGINE 100 UNIT/ML SUBCUT SCH ×2 (09:02→21:15)
[2019-03-27] MEDS ORDERED: SODIUM CHLORIDE 0.9% 1,000 ML IV PRN (11:01)
[2019-03-27] MEDS: TAMSULOSIN 0.4 MG CAPSULE PO SCH (13:36)
[2019-03-27] MEDS: MULTIVITAMIN (INTRINSIC) CAPSULE PO SCH (21:16)
[2019-03-27] MEDS: ENOXAPARIN 40 MG/0.4 ML SYRINGE SUBCUT SCH (21:45)
[2019-03-28] MEDS: VANCOMYCIN 50 MG/ML 60 ML/BOTTLE PO SCH ×5 (00:31→23:44)
[2019-03-28 04:53] LABS: Basophils # 0.1 10*3/uL (0.0-0.2); Basophils % 0.5 % (0.0-0.8); Eosinophils # 0.4 10*3/uL (0.0-0.87); Eosinophils % 3.6 % (0.00-10.9); Hematocrit 31.1 VOL% (35.7-47.0); Hemoglobin 10.1 GM/DL (12.0-16.0); Immature Granulocytes % 0.7 %; Immature Granulocytes Absolute 0.08 #; Lymphocytes # 3.3 10*3/uL (1.4-4.0); Lymphocytes % 28.3 % (21.3-54.2); Mean Corpuscular HGB Conc 32.5 GM/DL (32-36); Mean Corpuscular Volume 92.3 FL (87-102); Mean Platelet Volume 9.4 FL (9.6-12.0); Monocytes % 11.1 % (1.7-12.7); Neutrophils % 55.8 % (38.7-73.9); Platelet Count 498 T/CUMM (130-400); Red Blood Count 3.37 MC/CUMM (3.8-5.5); Red Cell Distribution Width 15.9 % (9.3-17.3); White Blood Count 11.8 T/CUMM (4-12)
[2019-03-28] MEDS: MULTIVITAMIN (INTRINSIC) CAPSULE PO SCH ×2 (09:38→21:29)
[2019-03-28] MEDS: TRIAMTERENE/HCTZ 37.5-25 MG CAPSULE PO SCH (09:38)
[2019-03-28] MEDS: TAMSULOSIN 0.4 MG CAPSULE PO SCH (09:38)
[2019-03-28] MEDS: ASPIRIN EC 81 MG TABLET PO SCH (09:38)
[2019-03-28] MEDS: VERAPAMIL 120 MG TABLET PO SCH ×2 (09:39→21:29)
[2019-03-28] MEDS: ATORVASTATIN 40 MG TABLET PO SCH (09:39)
[2019-03-28] MEDS: CLOPIDOGREL 75 MG TABLET PO SCH (09:39)
[2019-03-28] MEDS: amLODIPine 5 MG TABLET PO SCH (09:39)
[2019-03-28] MEDS: CILOSTAZOL 100 MG TABLET PO SCH ×2 (09:39→21:29)
[2019-03-28] MEDS: GABAPENTIN 300 MG CAPSULE PO SCH ×2 (09:39→21:29)
[2019-03-28] MEDS: METHENAMINE HIPPURATE 1 GM TABLET PO SCH ×2 (09:39→21:29)
[2019-03-28] MEDS: INSULIN LISPRO 100 UNIT/ML SUBCUT SCH ×6 (09:40→21:32)
[2019-03-28] MEDS: DOCUSATE SODIUM 100 MG CAPSULE PO SCH ×2 (09:40→21:34)
[2019-03-28] MEDS: INSULIN GLARGINE 100 UNIT/ML SUBCUT SCH ×2 (09:46→21:34)
[2019-03-28] MEDS: PANTOPRAZOLE 40 MG TABLET PO SCH (09:47)
[2019-03-28] MEDS: SODIUM CHLORIDE 0.9% 1,000 ML IV SCH ×2 (10:29→18:25)
[2019-03-28] MEDS: BISOPROLOL 5 MG TABLET PO SCH (10:30)
[2019-03-28] MEDS: traMADol 50 MG TABLET PO PRN ×2 (13:55→21:29)
[2019-03-28] MEDS: MECLIZINE 25 MG TABLET PO SCH (21:29)
[2019-03-28] MEDS: NYSTATIN CREAM 15 GM TUBE TOP SCH (21:32)
[2019-03-28] MEDS: ENOXAPARIN 40 MG/0.4 ML SYRINGE SUBCUT SCH (21:32)
[2019-03-29] MEDS: VANCOMYCIN 50 MG/ML 60 ML/BOTTLE PO SCH ×4 (05:47→23:30)
[2019-03-29] MEDS: NYSTATIN CREAM 15 GM TUBE TOP SCH ×2 (07:35→21:19)
[2019-03-29] MEDS: INSULIN LISPRO 100 UNIT/ML SUBCUT SCH ×6 (08:18→21:20)
[2019-03-29] MEDS: INSULIN GLARGINE 100 UNIT/ML SUBCUT SCH ×2 (08:19→21:20)
[2019-03-29] MEDS: METHENAMINE HIPPURATE 1 GM TABLET PO SCH ×2 (08:46→21:18)
[2019-03-29] MEDS: MULTIVITAMIN (INTRINSIC) CAPSULE PO SCH ×2 (08:46→21:18)
[2019-03-29] MEDS: ASPIRIN EC 81 MG TABLET PO SCH (08:47)
[2019-03-29] MEDS: CILOSTAZOL 100 MG TABLET PO SCH ×2 (08:48→21:22)
[2019-03-29] MEDS: DOCUSATE SODIUM 100 MG CAPSULE PO SCH ×3 (08:48→21:18)
[2019-03-29] MEDS: BISOPROLOL 5 MG TABLET PO SCH (08:48)
[2019-03-29] MEDS: ATORVASTATIN 40 MG TABLET PO SCH (08:48)
[2019-03-29] MEDS: VERAPAMIL 120 MG TABLET PO SCH ×2 (08:48→21:17)
[2019-03-29] MEDS: TAMSULOSIN 0.4 MG CAPSULE PO SCH (08:48)
[2019-03-29] MEDS: GABAPENTIN 300 MG CAPSULE PO SCH ×2 (08:48→21:18)
[2019-03-29] MEDS: CLOPIDOGREL 75 MG TABLET PO SCH (08:48)
[2019-03-29] MEDS: MECLIZINE 25 MG TABLET PO SCH ×3 (08:48→21:18)
[2019-03-29] MEDS: amLODIPine 5 MG TABLET PO SCH (08:48)
[2019-03-29] MEDS: PANTOPRAZOLE 40 MG TABLET PO SCH (08:48)
[2019-03-29] MEDS: TRIAMTERENE/HCTZ 37.5-25 MG CAPSULE PO SCH (08:49)
[2019-03-29] MEDS: SODIUM CHLORIDE 0.9% 1,000 ML IV SCH ×2 (10:46→22:40)
[2019-03-29] MEDS: ENOXAPARIN 40 MG/0.4 ML SYRINGE SUBCUT SCH (21:17)
[2019-03-30 05:23] LABS: Basophils # 0.1 10*3/uL (0.0-0.2); Basophils % 0.6 % (0.0-0.8); Eosinophils # 0.5 10*3/uL (0.0-0.87); Eosinophils % 4.9 % (0.00-10.9); Hematocrit 30.5 VOL% (35.7-47.0); Hemoglobin 9.7 GM/DL (12.0-16.0); Immature Granulocytes % 0.5 %; Immature Granulocytes Absolute 0.05 #; Lymphocytes # 3.1 10*3/uL (1.4-4.0); Lymphocytes % 30.3 % (21.3-54.2); Mean Corpuscular HGB Conc 31.8 GM/DL (32-36); Mean Corpuscular Volume 93.8 FL (87-102); Mean Platelet Volume 9.3 FL (9.6-12.0); Monocytes % 11.4 % (1.7-12.7); Neutrophils % 52.3 % (38.7-73.9); Platelet Count 502 T/CUMM (130-400); Red Blood Count 3.25 MC/CUMM (3.8-5.5); Red Cell Distribution Width 15.5 % (9.3-17.3); White Blood Count 10.4 T/CUMM (4-12)
[2019-03-30] MEDS: VANCOMYCIN 50 MG/ML 60 ML/BOTTLE PO SCH ×3 (06:25→17:55)
[2019-03-30] MEDS ORDERED: LACTATED RINGERS 1,000 ML IV SCH (08:00)
[2019-03-30] MEDS ORDERED: ONDANSETRON 4 MG/2 ML VIAL ONE (09:00)
[2019-03-30] MEDS ORDERED: LIDOCAINE 2% 5 ML VIAL ONE (09:00)
[2019-03-30] MEDS ORDERED: ETOMIDATE 20 MG/10 ML VIAL IV ONE (09:00)
[2019-03-30] MEDS ORDERED: PROPOFOL 200 MG/20 ML VIAL IV ONE (09:00)
[2019-03-30] MEDS: INSULIN LISPRO 100 UNIT/ML SUBCUT SCH ×6 (09:09→20:36)
[2019-03-30] MEDS: MECLIZINE 25 MG TABLET PO SCH ×3 (09:09→21:08)
[2019-03-30] MEDS: ATORVASTATIN 40 MG TABLET PO SCH (09:10)
[2019-03-30] MEDS: ASPIRIN EC 81 MG TABLET PO SCH (09:10)
[2019-03-30] MEDS: TRIAMTERENE/HCTZ 37.5-25 MG CAPSULE PO SCH (09:10)
[2019-03-30] MEDS: INSULIN GLARGINE 100 UNIT/ML SUBCUT SCH ×2 (09:10→20:36)
[2019-03-30] MEDS: METHENAMINE HIPPURATE 1 GM TABLET PO SCH ×2 (09:10→21:08)
[2019-03-30] MEDS: VERAPAMIL 120 MG TABLET PO SCH ×2 (09:10→21:08)
[2019-03-30] MEDS: DOCUSATE SODIUM 100 MG CAPSULE PO SCH ×2 (09:10→21:09)
[2019-03-30] MEDS: TAMSULOSIN 0.4 MG CAPSULE PO SCH (09:10)
[2019-03-30] MEDS: MULTIVITAMIN (INTRINSIC) CAPSULE PO SCH ×2 (09:11→21:09)
[2019-03-30] MEDS: amLODIPine 5 MG TABLET PO SCH (09:11)
[2019-03-30] MEDS: PANTOPRAZOLE 40 MG TABLET PO SCH (09:11)
[2019-03-30] MEDS: GABAPENTIN 300 MG CAPSULE PO SCH ×2 (09:11→21:08)
[2019-03-30] MEDS: NYSTATIN CREAM 15 GM TUBE TOP SCH ×2 (09:11→21:11)
[2019-03-30] MEDS: CILOSTAZOL 100 MG TABLET PO SCH ×2 (09:11→21:08)
[2019-03-30] MEDS: CLOPIDOGREL 75 MG TABLET PO SCH (09:11)
[2019-03-30] MEDS: BISOPROLOL 5 MG TABLET PO SCH (09:11)
[2019-03-30] MEDS: SODIUM CHLORIDE 0.9% 1,000 ML IV SCH (09:24)
[2019-03-30] MEDS: ENOXAPARIN 40 MG/0.4 ML SYRINGE SUBCUT SCH (21:09)
[2019-03-31] MEDS: SODIUM CHLORIDE 0.9% 1,000 ML IV SCH ×2 (00:18→13:30)
[2019-03-31] MEDS: VANCOMYCIN 50 MG/ML 60 ML/BOTTLE PO SCH ×4 (00:19→17:52)
[2019-03-31 07:53] LABS: Basophils % 0.5 % (0.0-0.8); Eosinophils # 0.4 10*3/uL (0.0-0.87); Eosinophils % 5.2 % (0.00-10.9); Hematocrit 33.2 VOL% (35.7-47.0); Hemoglobin 10.6 GM/DL (12.0-16.0); Immature Granulocytes % 0.3 %; Immature Granulocytes Absolute 0.02 #; Lymphocytes # 1.9 10*3/uL (1.4-4.0); Lymphocytes % 24.3 % (21.3-54.2); Mean Corpuscular HGB Conc 31.9 GM/DL (32-36); Mean Corpuscular Volume 93.8 FL (87-102); Mean Platelet Volume 9.3 FL (9.6-12.0); Monocytes % 11.5 % (1.7-12.7); Neutrophils % 58.2 % (38.7-73.9); Platelet Count 499 T/CUMM (130-400); Red Blood Count 3.54 MC/CUMM (3.8-5.5); Red Cell Distribution Width 15.1 % (9.3-17.3); White Blood Count 7.9 T/CUMM (4-12)
[2019-03-31] MEDS: TRIAMTERENE/HCTZ 37.5-25 MG CAPSULE PO SCH (08:57)
[2019-03-31] MEDS: TAMSULOSIN 0.4 MG CAPSULE PO SCH (08:57)
[2019-03-31] MEDS: CILOSTAZOL 100 MG TABLET PO SCH ×2 (08:57→22:40)
[2019-03-31] MEDS: amLODIPine 5 MG TABLET PO SCH (08:59)
[2019-03-31] MEDS: BISOPROLOL 5 MG TABLET PO SCH (08:59)
[2019-03-31] MEDS: MECLIZINE 25 MG TABLET PO SCH ×3 (08:59→22:40)
[2019-03-31] MEDS: CLOPIDOGREL 75 MG TABLET PO SCH (08:59)
[2019-03-31] MEDS: ASPIRIN EC 81 MG TABLET PO SCH (08:59)
[2019-03-31] MEDS: GABAPENTIN 300 MG CAPSULE PO SCH ×2 (09:00→22:42)
[2019-03-31] MEDS: VERAPAMIL 120 MG TABLET PO SCH ×2 (09:00→22:42)
[2019-03-31] MEDS: MULTIVITAMIN (INTRINSIC) CAPSULE PO SCH ×2 (09:00→22:42)
[2019-03-31] MEDS: PANTOPRAZOLE 40 MG TABLET PO SCH (09:00)
[2019-03-31] MEDS: NYSTATIN CREAM 15 GM TUBE TOP SCH ×2 (09:01→22:45)
[2019-03-31] MEDS: METHENAMINE HIPPURATE 1 GM TABLET PO SCH ×2 (09:01→22:39)
[2019-03-31] MEDS: ATORVASTATIN 40 MG TABLET PO SCH (09:01)
[2019-03-31] MEDS: DOCUSATE SODIUM 100 MG CAPSULE PO SCH ×2 (09:01→22:42)
[2019-03-31] MEDS: INSULIN GLARGINE 100 UNIT/ML SUBCUT SCH ×2 (09:01→20:15)
[2019-03-31] MEDS: INSULIN LISPRO 100 UNIT/ML SUBCUT SCH ×6 (09:02→20:15)
[2019-03-31] MEDS: SODIUM HYPOCHLORITE 0.25% IRRIG 473 ML BOTTLE TOP SCH (09:45)
[2019-03-31] MEDS: ENOXAPARIN 40 MG/0.4 ML SYRINGE SUBCUT SCH (22:43)
[2019-04-01] MEDS: VANCOMYCIN 50 MG/ML 60 ML/BOTTLE PO SCH ×3 (00:41→13:15)
[2019-04-01] MEDS: SODIUM CHLORIDE 0.9% 1,000 ML IV SCH ×2 (00:43→15:58)
[2019-04-01 05:07] LABS: Basophils # 0.1 10*3/uL (0.0-0.2); Basophils % 0.7 % (0.0-0.8); Eosinophils # 0.5 10*3/uL (0.0-0.87); Eosinophils % 5.7 % (0.00-10.9); Hematocrit 31.6 VOL% (35.7-47.0); Immature Granulocytes % 0.4 %; Immature Granulocytes Absolute 0.04 #; Lymphocytes # 2.6 10*3/uL (1.4-4.0); Lymphocytes % 27.7 % (21.3-54.2); Mean Corpuscular HGB Conc 31.6 GM/DL (32-36); Mean Corpuscular Volume 94.6 FL (87-102); Mean Platelet Volume 9.2 FL (9.6-12.0); Monocytes % 9.2 % (1.7-12.7); Neutrophils % 56.3 % (38.7-73.9); Platelet Count 483 T/CUMM (130-400); Red Blood Count 3.34 MC/CUMM (3.8-5.5); Red Cell Distribution Width 14.6 % (9.3-17.3); White Blood Count 9.5 T/CUMM (4-12)
[2019-04-01 05:47] LABS: Albumin 1.8 G/DL (3.4-5.0); Bilirubin,Total 0.4 MG/DL (0.2-1.0); Calcium 8.4 MG/DL (8.5-10.1); Osmolality,Calculated 280.4 MOS/KG (273-304); Total Protein 6.5 G/DL (6.4-8.3)
[2019-04-01] MEDS ORDERED: MAGNESIUM SULF RIDER 2 GM in PREMIX 1 EACH IV PRN (05:57)
[2019-04-01] MEDS ORDERED: MAGNESIUM SULF RIDER 4 GM in PREMIX 1 EACH IV PRN (05:57)
[2019-04-01] MEDS: INSULIN LISPRO 100 UNIT/ML SUBCUT SCH ×6 (09:11→22:03)
[2019-04-01] MEDS: INSULIN GLARGINE 100 UNIT/ML SUBCUT SCH ×2 (09:12→22:04)
[2019-04-01] MEDS: MULTIVITAMIN (INTRINSIC) CAPSULE PO SCH ×2 (09:28→22:02)
[2019-04-01] MEDS: CILOSTAZOL 100 MG TABLET PO SCH ×2 (09:28→22:02)
[2019-04-01] MEDS: METHENAMINE HIPPURATE 1 GM TABLET PO SCH ×2 (09:28→22:03)
[2019-04-01] MEDS: ASPIRIN EC 81 MG TABLET PO SCH (09:28)
[2019-04-01] MEDS: TAMSULOSIN 0.4 MG CAPSULE PO SCH (09:28)
[2019-04-01] MEDS: MECLIZINE 25 MG TABLET PO SCH ×3 (09:28→22:03)
[2019-04-01] MEDS: DOCUSATE SODIUM 100 MG CAPSULE PO SCH ×2 (09:28→22:03)
[2019-04-01] MEDS: TRIAMTERENE/HCTZ 37.5-25 MG CAPSULE PO SCH (09:28)
[2019-04-01] MEDS: CLOPIDOGREL 75 MG TABLET PO SCH (09:29)
[2019-04-01] MEDS: amLODIPine 5 MG TABLET PO SCH (09:29)
[2019-04-01] MEDS: PANTOPRAZOLE 40 MG TABLET PO SCH (09:29)
[2019-04-01] MEDS: ATORVASTATIN 40 MG TABLET PO SCH (09:29)
[2019-04-01] MEDS: GABAPENTIN 300 MG CAPSULE PO SCH ×2 (09:29→22:03)
[2019-04-01] MEDS: BISOPROLOL 5 MG TABLET PO SCH (09:29)
[2019-04-01] MEDS: NYSTATIN CREAM 15 GM TUBE TOP SCH ×2 (09:30→22:04)
[2019-04-01] MEDS: VERAPAMIL 120 MG TABLET PO SCH ×2 (09:30→22:02)
[2019-04-01] MEDS: SODIUM HYPOCHLORITE 0.25% IRRIG 473 ML BOTTLE TOP SCH (13:16)
[2019-04-01] MEDS: ENOXAPARIN 40 MG/0.4 ML SYRINGE SUBCUT SCH (22:04)
[2019-04-02] MEDS: SODIUM CHLORIDE 0.9% 1,000 ML IV SCH ×3 (02:51→09:58)
[2019-04-02] MEDS ORDERED: VANCOMYCIN INJ 1,000 MG in SODIUM CHLORIDE 0.9% 250 ML IV ONE (07:30)
[2019-04-02] MEDS ORDERED: MIDAZOLAM 2 MG/2 ML VIAL ONE (07:37)
[2019-04-02] MEDS ORDERED: PROPOFOL 200 MG/20 ML VIAL IV ONE ×2 (07:37→09:01)
[2019-04-02] MEDS ORDERED: SODIUM CHLORIDE 0.9% 100 ML IV ONE (07:37)
[2019-04-02] MEDS ORDERED: fentaNYL 100 MCG/2 ML VIAL ONE (07:37)
[2019-04-02] MEDS ORDERED: LIDOCAINE 2% 5 ML VIAL ONE (07:37)
[2019-04-02] MEDS: INSULIN LISPRO 100 UNIT/ML SUBCUT SCH ×6 (08:36→20:45)
[2019-04-02] MEDS ORDERED: HYDROmorphone 2 MG/1 ML VIAL ONE (08:54)
[2019-04-02] MEDS ORDERED: ONDANSETRON 4 MG/2 ML VIAL ONE (08:54)
[2019-04-02] MEDS: HYDROmorphone 2 MG/1 ML VIAL IV PRN ×2 (08:55→09:10)
[2019-04-02] MEDS ORDERED: ONDANSETRON 4 MG/2 ML VIAL IV PRN (08:59)
[2019-04-02] MEDS: ASPIRIN EC 81 MG TABLET PO SCH (10:44)
[2019-04-02] MEDS: amLODIPine 5 MG TABLET PO SCH (10:44)
[2019-04-02] MEDS: GABAPENTIN 300 MG CAPSULE PO SCH ×2 (10:44→20:44)
[2019-04-02] MEDS: DOCUSATE SODIUM 100 MG CAPSULE PO SCH ×2 (10:44→20:45)
[2019-04-02] MEDS: MULTIVITAMIN (INTRINSIC) CAPSULE PO SCH ×2 (10:44→20:44)
[2019-04-02] MEDS: BISOPROLOL 5 MG TABLET PO SCH (10:45)
[2019-04-02] MEDS: CLOPIDOGREL 75 MG TABLET PO SCH (10:45)
[2019-04-02] MEDS: TAMSULOSIN 0.4 MG CAPSULE PO SCH (10:45)
[2019-04-02] MEDS: VERAPAMIL 120 MG TABLET PO SCH ×2 (10:45→20:44)
[2019-04-02] MEDS: MECLIZINE 25 MG TABLET PO SCH ×3 (10:45→20:44)
[2019-04-02] MEDS: PANTOPRAZOLE 40 MG TABLET PO SCH (10:45)
[2019-04-02] MEDS: ATORVASTATIN 40 MG TABLET PO SCH (10:45)
[2019-04-02] MEDS: CILOSTAZOL 100 MG TABLET PO SCH ×2 (10:46→20:44)
[2019-04-02] MEDS: SODIUM HYPOCHLORITE 0.25% IRRIG 473 ML BOTTLE TOP SCH (10:46)
[2019-04-02] MEDS: INSULIN GLARGINE 100 UNIT/ML SUBCUT SCH ×2 (10:46→20:45)
[2019-04-02] MEDS: NYSTATIN CREAM 15 GM TUBE TOP SCH ×2 (10:47→20:46)
[2019-04-02] MEDS: traMADol 50 MG TABLET PO PRN (11:07)
[2019-04-02] MEDS: METHENAMINE HIPPURATE 1 GM TABLET PO SCH (11:14)
[2019-04-02] MEDS: ENOXAPARIN 40 MG/0.4 ML SYRINGE SUBCUT SCH (21:45)
[2019-04-03] MEDS: traMADol 50 MG TABLET PO PRN (00:38)
[2019-04-03 05:26] LABS: Basophils # 0.1 10*3/uL (0.0-0.2); Basophils % 0.6 % (0.0-0.8); Eosinophils # 0.6 10*3/uL (0.0-0.87); Eosinophils % 6.2 % (0.00-10.9); Hematocrit 31.2 VOL% (35.7-47.0); Hemoglobin 9.6 GM/DL (12.0-16.0); Immature Granulocytes % 0.4 %; Immature Granulocytes Absolute 0.04 #; Lymphocytes # 2.8 10*3/uL (1.4-4.0); Lymphocytes % 27.6 % (21.3-54.2); Mean Corpuscular HGB Conc 30.8 GM/DL (32-36); Mean Corpuscular Volume 95.4 FL (87-102); Mean Platelet Volume 9.6 FL (9.6-12.0); Monocytes % 9.9 % (1.7-12.7); Neutrophils % 55.3 % (38.7-73.9); Platelet Count 428 T/CUMM (130-400); Red Blood Count 3.27 MC/CUMM (3.8-5.5); Red Cell Distribution Width 14.2 % (9.3-17.3); White Blood Count 10.1 T/CUMM (4-12)
[2019-04-03 06:02] LABS: Calcium 7.9 MG/DL (8.5-10.1); Osmolality,Calculated 279.5 MOS/KG (273-304)
[2019-04-03] MEDS: ASPIRIN EC 81 MG TABLET PO SCH (08:00)
[2019-04-03] MEDS: BISOPROLOL 5 MG TABLET PO SCH (08:01)
[2019-04-03] MEDS: TAMSULOSIN 0.4 MG CAPSULE PO SCH (08:02)
[2019-04-03] MEDS: GABAPENTIN 300 MG CAPSULE PO SCH ×2 (08:02→20:59)
[2019-04-03] MEDS: CILOSTAZOL 100 MG TABLET PO SCH ×2 (08:03→20:58)
[2019-04-03] MEDS: amLODIPine 5 MG TABLET PO SCH (08:03)
[2019-04-03] MEDS: VERAPAMIL 120 MG TABLET PO SCH ×2 (08:03→21:00)
[2019-04-03] MEDS: PANTOPRAZOLE 40 MG TABLET PO SCH (08:03)
[2019-04-03] MEDS: MECLIZINE 25 MG TABLET PO SCH ×3 (08:03→20:59)
[2019-04-03] MEDS: MULTIVITAMIN (INTRINSIC) CAPSULE PO SCH ×2 (08:03→20:58)
[2019-04-03] MEDS: ATORVASTATIN 40 MG TABLET PO SCH (08:03)
[2019-04-03] MEDS: DOCUSATE SODIUM 100 MG CAPSULE PO SCH ×2 (08:03→20:58)
[2019-04-03] MEDS: INSULIN LISPRO 100 UNIT/ML SUBCUT SCH ×6 (08:10→21:00)
[2019-04-03] MEDS: CLOPIDOGREL 75 MG TABLET PO SCH (08:13)
[2019-04-03] MEDS: INSULIN GLARGINE 100 UNIT/ML SUBCUT SCH ×2 (08:13→21:01)
[2019-04-03] MEDS: SODIUM HYPOCHLORITE 0.25% IRRIG 473 ML BOTTLE TOP SCH (09:50)
[2019-04-03] MEDS: NYSTATIN CREAM 15 GM TUBE TOP SCH ×2 (10:45→21:14)
[2019-04-03] MEDS: ACETAMINOPHEN 325 MG TABLET PO PRN (20:59)
[2019-04-04] MEDS: ENOXAPARIN 40 MG/0.4 ML SYRINGE SUBCUT SCH (00:51)
[2019-04-04 06:32] LABS: Calcium 8.7 MG/DL (8.5-10.1); Osmolality,Calculated 279.7 MOS/KG (273-304)
[2019-04-04] MEDS ORDERED: LINEZOLID 600 MG TABLET PO SCH (09:00)
[2019-04-04] MEDS: INSULIN LISPRO 100 UNIT/ML SUBCUT SCH ×5 (09:06→17:36)
[2019-04-04] MEDS: CLOPIDOGREL 75 MG TABLET PO SCH (09:07)
[2019-04-04] MEDS: ASPIRIN EC 81 MG TABLET PO SCH (09:07)
[2019-04-04] MEDS: TAMSULOSIN 0.4 MG CAPSULE PO SCH (09:07)
[2019-04-04] MEDS: VERAPAMIL 120 MG TABLET PO SCH (09:07)
[2019-04-04] MEDS: BISOPROLOL 5 MG TABLET PO SCH (09:07)
[2019-04-04] MEDS: DOCUSATE SODIUM 100 MG CAPSULE PO SCH (09:07)
[2019-04-04] MEDS: MULTIVITAMIN (INTRINSIC) CAPSULE PO SCH (09:07)
[2019-04-04] MEDS: PANTOPRAZOLE 40 MG TABLET PO SCH (09:07)
[2019-04-04] MEDS: amLODIPine 5 MG TABLET PO SCH (09:08)
[2019-04-04] MEDS: GABAPENTIN 300 MG CAPSULE PO SCH (09:08)
[2019-04-04] MEDS: CILOSTAZOL 100 MG TABLET PO SCH (09:08)
[2019-04-04] MEDS: INSULIN GLARGINE 100 UNIT/ML SUBCUT SCH (09:09)
[2019-04-04] MEDS: MECLIZINE 25 MG TABLET PO SCH ×2 (09:09→15:37)
[2019-04-04] MEDS: ATORVASTATIN 40 MG TABLET PO SCH (09:09)
[2019-04-04] MEDS: NYSTATIN CREAM 15 GM TUBE TOP SCH (09:15)
[2019-04-04] MEDS: SODIUM HYPOCHLORITE 0.25% IRRIG 473 ML BOTTLE TOP SCH (09:15)
[2019-04-04 17:50] VITALS: BP 127/50
== END 2019-04-04 17:35 | disposition swing bed (61) | DRG 981 ==
LOC: N.5E
PROVIDERS: ADMIT Family Medicine; ATTEND Family Medicine

== ENCOUNTER 2021-06-09 13:43 | Inpatient (IN) ==
[2021-06-09] MEDS ORDERED: GLUCAGON 1 MG VIAL IM PRN (14:09)
[2021-06-09] MEDS ORDERED: ACETAMINOPHEN 325 MG TABLET PO PRN (14:09)
[2021-06-09] MEDS ORDERED: ONDANSETRON 4 MG/2 ML VIAL IV PRN (14:09)
[2021-06-09] MEDS ORDERED: GABAPENTIN 300 MG CAPSULE PO PRN (14:13)
[2021-06-09] MEDS ORDERED: NITROGLYCERIN SL 0.4 MG TABLET SL PRN (14:13)
[2021-06-09] MEDS ORDERED: DEXTROSE 50% 25 GM/50 ML SYRINGE IV PRN (15:46)
[2021-06-09] MEDS: ENOXAPARIN 30 MG/0.3 ML SYRINGE SUBCUT SCH (17:45)
[2021-06-09] MEDS: INSULIN LISPRO 100 UNIT/ML SUBCUT SCH ×2 (17:45→22:34)
[2021-06-09] MEDS: SODIUM CHLORIDE 0.45% 1,000 ML IV SCH (18:14)
[2021-06-09] MEDS: LEVOFLOXACIN INJ 500 MG/100 ML PREMIX IV SCH (18:15)
[2021-06-09] MEDS ORDERED: INSULIN GLARGINE 100 UNIT/ML SUBCUT SCH (21:00)
[2021-06-09] MEDS: DOCUSATE SODIUM 100 MG CAPSULE PO SCH (21:42)
[2021-06-09] MEDS: ATORVASTATIN 80 MG TABLET PO SCH (21:42)
[2021-06-09] MEDS: SERTRALINE 50 MG TABLET PO SCH (21:42)
[2021-06-09] MEDS: MECLIZINE 12.5 MG TABLET PO PRN (23:11)
[2021-06-10] MEDS: TRESIBA SUBCUT SCH ×2 (00:02→22:02)
[2021-06-10 06:35] LABS: Calcium 8.5 MG/DL (8.5-10.1); Osmolality,Calculated 286.7 MOS/KG (273-304); Potassium 3.9 MMOL/L (3.5-5.1)
[2021-06-10] MEDS: SODIUM CHLORIDE 0.45% 1,000 ML IV SCH ×3 (07:04→22:02)
[2021-06-10] MEDS: ASPIRIN EC 81 MG TABLET PO SCH (09:28)
[2021-06-10] MEDS: CLOPIDOGREL 75 MG TABLET PO SCH (09:28)
[2021-06-10] MEDS: BACLOFEN 10 MG TABLET PO SCH (09:28)
[2021-06-10] MEDS: OXYBUTYNIN 5 MG TABLET PO SCH (09:28)
[2021-06-10] MEDS: DULoxetine 30 MG CAPSULE PO SCH (09:28)
[2021-06-10] MEDS: FOLIC ACID 1 MG TABLET PO SCH (09:28)
[2021-06-10] MEDS: BISOPROLOL 5 MG TABLET PO SCH (09:28)
[2021-06-10] MEDS: DOCUSATE SODIUM 100 MG CAPSULE PO SCH ×2 (09:28→22:00)
[2021-06-10] MEDS: amLODIPine 10 MG TABLET PO SCH (09:28)
[2021-06-10] MEDS: PANTOPRAZOLE 40 MG TABLET PO SCH (09:28)
[2021-06-10] MEDS: MULTIVITAMIN (CENTRUM) TABLET PO SCH (09:28)
[2021-06-10] MEDS: MECLIZINE 12.5 MG TABLET PO PRN (10:09)
[2021-06-10] MEDS: INSULIN LISPRO 100 UNIT/ML SUBCUT SCH (11:27)
[2021-06-10] MEDS: SERTRALINE 50 MG TABLET PO SCH (22:00)
[2021-06-10] MEDS: ATORVASTATIN 80 MG TABLET PO SCH (22:00)
[2021-06-10] MEDS: ENOXAPARIN 30 MG/0.3 ML SYRINGE SUBCUT SCH (22:00)
[2021-06-10] MEDS: LEVOFLOXACIN INJ 500 MG/100 ML PREMIX IV SCH (22:00)
[2021-06-11] MEDS ORDERED: METHOTREXATE 2.5 MG TABLET PO SCH (09:00)
[2021-06-11] MEDS: BISOPROLOL 5 MG TABLET PO SCH (10:31)
[2021-06-11] MEDS: MULTIVITAMIN (CENTRUM) TABLET PO SCH (10:32)
[2021-06-11] MEDS: FOLIC ACID 1 MG TABLET PO SCH (10:32)
[2021-06-11] MEDS: CLOPIDOGREL 75 MG TABLET PO SCH (10:32)
[2021-06-11] MEDS: ASPIRIN EC 81 MG TABLET PO SCH (10:32)
[2021-06-11] MEDS: PANTOPRAZOLE 40 MG TABLET PO SCH (10:32)
[2021-06-11] MEDS: amLODIPine 10 MG TABLET PO SCH (10:32)
[2021-06-11] MEDS: BACLOFEN 10 MG TABLET PO SCH (10:34)
[2021-06-11] MEDS: OXYBUTYNIN 5 MG TABLET PO SCH (10:34)
[2021-06-11] MEDS: DOCUSATE SODIUM 100 MG CAPSULE PO SCH ×2 (10:34→22:57)
[2021-06-11] MEDS: DULoxetine 30 MG CAPSULE PO SCH (10:47)
[2021-06-11] MEDS: SODIUM CHLORIDE 0.45% 1,000 ML IV SCH (19:50)
[2021-06-11] MEDS: LEVOFLOXACIN INJ 500 MG/100 ML PREMIX IV SCH (22:45)
[2021-06-11] MEDS: SERTRALINE 50 MG TABLET PO SCH (22:57)
[2021-06-11] MEDS: ATORVASTATIN 80 MG TABLET PO SCH (22:57)
[2021-06-11] MEDS: TRESIBA SUBCUT SCH (22:58)
[2021-06-11] MEDS: ENOXAPARIN 30 MG/0.3 ML SYRINGE SUBCUT SCH (22:59)
[2021-06-12] MEDS: SODIUM CHLORIDE 0.45% 1,000 ML IV SCH ×2 (02:06→14:06)
[2021-06-12] MEDS: FOLIC ACID 1 MG TABLET PO SCH (09:41)
[2021-06-12] MEDS: CLOPIDOGREL 75 MG TABLET PO SCH (09:42)
[2021-06-12] MEDS: DULoxetine 30 MG CAPSULE PO SCH (09:42)
[2021-06-12] MEDS: DOCUSATE SODIUM 100 MG CAPSULE PO SCH (09:42)
[2021-06-12] MEDS: BISOPROLOL 5 MG TABLET PO SCH (09:42)
[2021-06-12] MEDS: PANTOPRAZOLE 40 MG TABLET PO SCH (09:42)
[2021-06-12] MEDS: amLODIPine 10 MG TABLET PO SCH (09:43)
[2021-06-12] MEDS: OXYBUTYNIN 5 MG TABLET PO SCH (09:43)
[2021-06-12] MEDS: ASPIRIN EC 81 MG TABLET PO SCH (09:43)
[2021-06-12] MEDS: MULTIVITAMIN (CENTRUM) TABLET PO SCH (09:43)
[2021-06-12] MEDS: BACLOFEN 10 MG TABLET PO SCH (10:48)
[2021-06-12 12:00] VITALS: BP 170/66
[2021-06-12] MEDS ORDERED: BACLOFEN 10 MG TABLET PO SCH (21:00)
== END 2021-06-12 15:21 | disposition home or self-care (01) | DRG 689 ==
LOC: N.5E 15:11
PROVIDERS: ADMIT Family Medicine; ATTEND Family Medicine

== ENCOUNTER 2021-09-23 13:07 | Inpatient (IN) ==
[2021-09-23] MEDS ORDERED: ACETAMINOPHEN 325 MG TABLET PO PRN (13:35)
[2021-09-23] MEDS ORDERED: ONDANSETRON 4 MG/2 ML VIAL IV PRN (13:35)
[2021-09-23] MEDS ORDERED: GLUCAGON 1 MG VIAL IM PRN (13:35)
[2021-09-23] MEDS ORDERED: DEXTROSE 10% 250 ML BAG IV PRN (16:10)
[2021-09-23] MEDS: SODIUM CHLORIDE 0.45% 1,000 ML IV SCH (17:20)
[2021-09-23] MEDS: LEVOFLOXACIN INJ 500 MG/100 ML PREMIX IV SCH (17:21)
[2021-09-23] MEDS: INSULIN LISPRO 100 UNIT/ML SUBCUT SCH ×2 (18:02→22:32)
[2021-09-23] MEDS: ALBUTEROL 2.5 MG/3 ML NEB RESP TX SCH (19:10)
[2021-09-23] MEDS: TRESIBA 60 UNIT SUBCUT SCH (22:26)
[2021-09-23] MEDS: DOCUSATE SODIUM 100 MG CAPSULE PO SCH (22:31)
[2021-09-24 05:08] LABS: Basophils # 0.1 10*3/uL (0.0-0.2); Basophils % 0.6 % (0.0-0.8); Eosinophils # 0.3 10*3/uL (0.0-0.87); Eosinophils % 2.5 % (0.00-10.9); Hematocrit 35.7 VOL% (35.7-47.0); Hemoglobin 11.3 GM/DL (12.0-16.0); Immature Granulocytes % 0.6 %; Immature Granulocytes Absolute 0.07 #; Lymphocytes # 2.2 10*3/uL (1.4-4.0); Mean Corpuscular HGB Conc 31.7 GM/DL (32-36); Mean Corpuscular Volume 97.3 FL (87-102); Mean Platelet Volume 9.8 FL (9.6-12.0); Monocytes % 10.1 % (1.7-12.7); Neutrophils % 67.2 % (38.7-73.9); Platelet Count 547 T/CUMM (130-400); Red Blood Count 3.67 MC/CUMM (3.8-5.5); Red Cell Distribution Width 14.1 % (9.3-17.3); White Blood Count 11.4 T/CUMM (4-12)
[2021-09-24 05:22] LABS: Calcium 8.7 MG/DL (8.5-10.1); Osmolality,Calculated 287.5 MOS/KG (273-304); Potassium 3.5 MMOL/L (3.5-5.1)
[2021-09-24] MEDS: SODIUM CHLORIDE 0.45% 1,000 ML IV SCH ×2 (06:30→20:37)
[2021-09-24] MEDS ORDERED: PANTOPRAZOLE 40 MG TABLET PO SCH ×2 (06:30→09:00)
[2021-09-24] MEDS: ALBUTEROL 2.5 MG/3 ML NEB RESP TX SCH ×4 (07:14→19:44)
[2021-09-24] MEDS ORDERED: ACETAMINOPHEN 325 MG TABLET PO PRN (07:47)
[2021-09-24] MEDS ORDERED: DULoxetine 30 MG CAPSULE PO SCH (09:00)
[2021-09-24] MEDS: LOSARTAN 25 MG TABLET PO SCH (10:09)
[2021-09-24] MEDS: FOLIC ACID 1 MG TABLET PO SCH (10:09)
[2021-09-24] MEDS: OXYBUTYNIN 5 MG TABLET PO SCH (10:09)
[2021-09-24] MEDS: ASPIRIN EC 81 MG TABLET PO SCH (10:09)
[2021-09-24] MEDS: CLOPIDOGREL 75 MG TABLET PO SCH (10:09)
[2021-09-24] MEDS: MULTIVITAMIN (CENTRUM) TABLET PO SCH (10:10)
[2021-09-24] MEDS: BACLOFEN 10 MG TABLET PO SCH (10:10)
[2021-09-24] MEDS: BISOPROLOL 5 MG TABLET PO SCH (10:10)
[2021-09-24] MEDS: METHENAMINE HIPPURATE 1 GM TABLET PO SCH ×2 (10:10→20:39)
[2021-09-24] MEDS: DOCUSATE SODIUM 100 MG CAPSULE PO SCH ×2 (10:10→20:39)
[2021-09-24] MEDS: ENOXAPARIN 40 MG/0.4 ML SYRINGE SUBCUT SCH (10:11)
[2021-09-24] MEDS: METHOTREXATE 2.5 MG TABLET PO SCH (10:15)
[2021-09-24] MEDS: NOVOLOG FLEXPEN SUBCUT SCH ×3 (10:25→17:06)
[2021-09-24] MEDS: INSULIN LISPRO 100 UNIT/ML SUBCUT SCH ×7 (10:54→22:28)
[2021-09-24] MEDS: LEVOFLOXACIN INJ 500 MG/100 ML PREMIX IV SCH (16:52)
[2021-09-24] MEDS ORDERED: POLYETHYLENE GLYCOL POWDER 17 GM PACK PO PRN (19:45)
[2021-09-24] MEDS: ATORVASTATIN 80 MG TABLET PO SCH (20:39)
[2021-09-24] MEDS: amLODIPine 5 MG TABLET PO SCH (20:40)
[2021-09-24] MEDS: SERTRALINE 50 MG TABLET PO SCH (20:49)
[2021-09-24] MEDS ORDERED: INSULIN GLARGINE 100 UNIT/ML SUBCUT SCH (21:00)
[2021-09-24] MEDS: TRESIBA 60 UNIT SUBCUT SCH (22:28)
[2021-09-25] MEDS: ALBUTEROL 2.5 MG/3 ML NEB RESP TX SCH ×4 (00:56→19:06)
[2021-09-25] MEDS: INSULIN LISPRO 100 UNIT/ML SUBCUT SCH ×4 (08:51→22:37)
[2021-09-25] MEDS: FOLIC ACID 1 MG TABLET PO SCH (08:52)
[2021-09-25] MEDS: METHENAMINE HIPPURATE 1 GM TABLET PO SCH ×2 (08:52→20:59)
[2021-09-25] MEDS: DOCUSATE SODIUM 100 MG CAPSULE PO SCH ×2 (08:52→20:59)
[2021-09-25] MEDS: MULTIVITAMIN (CENTRUM) TABLET PO SCH (08:52)
[2021-09-25] MEDS: ASPIRIN EC 81 MG TABLET PO SCH (08:53)
[2021-09-25] MEDS: PANTOPRAZOLE 40 MG TABLET PO SCH (08:53)
[2021-09-25] MEDS: LEVOFLOXACIN 500 MG TABLET PO SCH (08:53)
[2021-09-25] MEDS: BISOPROLOL 5 MG TABLET PO SCH (08:53)
[2021-09-25] MEDS: BACLOFEN 10 MG TABLET PO SCH (08:54)
[2021-09-25] MEDS: CLOPIDOGREL 75 MG TABLET PO SCH (08:55)
[2021-09-25] MEDS: LOSARTAN 25 MG TABLET PO SCH (08:55)
[2021-09-25] MEDS: OXYBUTYNIN 5 MG TABLET PO SCH (08:55)
[2021-09-25] MEDS: NOVOLOG FLEXPEN SUBCUT SCH ×3 (08:56→17:21)
[2021-09-25] MEDS: ENOXAPARIN 40 MG/0.4 ML SYRINGE SUBCUT SCH (08:59)
[2021-09-25] MEDS: SODIUM CHLORIDE 0.45% 1,000 ML IV SCH ×2 (09:09→22:37)
[2021-09-25] MEDS: GABAPENTIN 300 MG CAPSULE PO PRN (20:59)
[2021-09-25] MEDS: DULoxetine 30 MG CAPSULE PO SCH (20:59)
[2021-09-25] MEDS: ATORVASTATIN 80 MG TABLET PO SCH (20:59)
[2021-09-25] MEDS: amLODIPine 5 MG TABLET PO SCH (21:00)
[2021-09-25] MEDS: SERTRALINE 50 MG TABLET PO SCH (21:00)
[2021-09-25] MEDS: TRESIBA 60 UNIT SUBCUT SCH (21:09)
[2021-09-26] MEDS: ALBUTEROL 2.5 MG/3 ML NEB RESP TX SCH ×4 (00:35→19:25)
[2021-09-26] MEDS: INSULIN LISPRO 100 UNIT/ML SUBCUT SCH ×4 (07:41→22:01)
[2021-09-26] MEDS: PANTOPRAZOLE 40 MG TABLET PO SCH (08:35)
[2021-09-26] MEDS: OXYBUTYNIN 5 MG TABLET PO SCH (08:35)
[2021-09-26] MEDS: BISOPROLOL 5 MG TABLET PO SCH (08:35)
[2021-09-26] MEDS: CLOPIDOGREL 75 MG TABLET PO SCH (08:38)
[2021-09-26] MEDS: LEVOFLOXACIN 500 MG TABLET PO SCH (08:38)
[2021-09-26] MEDS: FOLIC ACID 1 MG TABLET PO SCH (08:38)
[2021-09-26] MEDS: MULTIVITAMIN (CENTRUM) TABLET PO SCH (08:38)
[2021-09-26] MEDS: ASPIRIN EC 81 MG TABLET PO SCH (08:38)
[2021-09-26] MEDS: DOCUSATE SODIUM 100 MG CAPSULE PO SCH ×2 (08:39→22:05)
[2021-09-26] MEDS: LOSARTAN 25 MG TABLET PO SCH (08:39)
[2021-09-26] MEDS: BACLOFEN 10 MG TABLET PO SCH ×2 (08:39→22:08)
[2021-09-26] MEDS: ENOXAPARIN 40 MG/0.4 ML SYRINGE SUBCUT SCH (08:40)
[2021-09-26] MEDS: METHENAMINE HIPPURATE 1 GM TABLET PO SCH ×2 (08:41→22:08)
[2021-09-26] MEDS: NOVOLOG FLEXPEN SUBCUT SCH ×3 (10:24→19:12)
[2021-09-26] MEDS: SODIUM CHLORIDE 0.45% 1,000 ML IV SCH (16:07)
[2021-09-26] MEDS: amLODIPine 5 MG TABLET PO SCH (22:04)
[2021-09-26] MEDS: SERTRALINE 50 MG TABLET PO SCH (22:06)
[2021-09-26] MEDS: DULoxetine 30 MG CAPSULE PO SCH (22:07)
[2021-09-26] MEDS: ATORVASTATIN 80 MG TABLET PO SCH (22:07)
[2021-09-26] MEDS: TRESIBA 60 UNIT SUBCUT SCH (22:42)
[2021-09-27] MEDS: ALBUTEROL 2.5 MG/3 ML NEB RESP TX SCH ×4 (00:38→19:30)
[2021-09-27] MEDS: SODIUM CHLORIDE 0.45% 1,000 ML IV SCH ×2 (00:50→13:55)
[2021-09-27] MEDS: PANTOPRAZOLE 40 MG TABLET PO SCH (07:23)
[2021-09-27] MEDS: INSULIN LISPRO 100 UNIT/ML SUBCUT SCH ×4 (08:58→22:25)
[2021-09-27] MEDS: BISOPROLOL 5 MG TABLET PO SCH (09:23)
[2021-09-27] MEDS: NOVOLOG FLEXPEN SUBCUT SCH ×4 (09:23→16:12)
[2021-09-27] MEDS: METHENAMINE HIPPURATE 1 GM TABLET PO SCH ×2 (09:23→22:29)
[2021-09-27] MEDS: LOSARTAN 25 MG TABLET PO SCH (09:24)
[2021-09-27] MEDS: ASPIRIN EC 81 MG TABLET PO SCH (09:24)
[2021-09-27] MEDS: FOLIC ACID 1 MG TABLET PO SCH (09:25)
[2021-09-27] MEDS: MULTIVITAMIN (CENTRUM) TABLET PO SCH (09:25)
[2021-09-27] MEDS: CLOPIDOGREL 75 MG TABLET PO SCH (09:26)
[2021-09-27] MEDS: DOCUSATE SODIUM 100 MG CAPSULE PO SCH ×2 (09:27→22:26)
[2021-09-27] MEDS: OXYBUTYNIN 5 MG TABLET PO SCH (09:27)
[2021-09-27] MEDS: LEVOFLOXACIN 500 MG TABLET PO SCH (09:28)
[2021-09-27] MEDS: ENOXAPARIN 40 MG/0.4 ML SYRINGE SUBCUT SCH ×2 (09:28→11:07)
[2021-09-27] MEDS ORDERED: MAGNESIUM HYDROXIDE SUSP 30 ML UDCUP PO PRN (13:22)
[2021-09-27] MEDS ORDERED: ALBUTEROL 2.5 MG/3 ML NEB RESP TX PRN ×2 (21:16→21:18)
[2021-09-27] MEDS ORDERED: BISACODYL 10 MG SUPP RECTAL PRN (21:55)
[2021-09-27] MEDS: TRESIBA 60 UNIT SUBCUT SCH (22:25)
[2021-09-27] MEDS: ATORVASTATIN 80 MG TABLET PO SCH (22:26)
[2021-09-27] MEDS: DULoxetine 30 MG CAPSULE PO SCH (22:26)
[2021-09-27] MEDS: amLODIPine 5 MG TABLET PO SCH (22:26)
[2021-09-27] MEDS: BACLOFEN 10 MG TABLET PO SCH (22:27)
[2021-09-27] MEDS: GABAPENTIN 300 MG CAPSULE PO PRN (22:27)
[2021-09-27] MEDS: SERTRALINE 50 MG TABLET PO SCH (22:27)
[2021-09-27] MEDS ORDERED: SODIUM PHOSPHATE ENEMA 133 ML BOTTLE RECTAL ONE (23:00)
[2021-09-28] MEDS: ALBUTEROL/IPRATROPIUM 3 ML NEB RESP TX SCH ×4 (01:15→19:57)
[2021-09-28] MEDS: SODIUM CHLORIDE 0.45% 1,000 ML IV SCH ×2 (03:06→16:50)
[2021-09-28 06:11] LABS: Basophils # 0.1 10*3/uL (0.0-0.2); Basophils % 0.7 % (0.0-0.8); Eosinophils # 0.3 10*3/uL (0.0-0.87); Eosinophils % 2.7 % (0.00-10.9); Hematocrit 31.9 VOL% (35.7-47.0); Immature Granulocytes % 0.5 %; Immature Granulocytes Absolute 0.05 #; Lymphocytes # 1.8 10*3/uL (1.4-4.0); Lymphocytes % 17.4 % (21.3-54.2); Mean Corpuscular HGB Conc 31.3 GM/DL (32-36); Mean Corpuscular Volume 97.3 FL (87-102); Mean Platelet Volume 9.8 FL (9.6-12.0); Monocytes % 4.7 % (1.7-12.7); Platelet Count 497 T/CUMM (130-400); Red Blood Count 3.28 MC/CUMM (3.8-5.5); Red Cell Distribution Width 14.1 % (9.3-17.3); White Blood Count 10.4 T/CUMM (4-12)
[2021-09-28 06:31] LABS: Alanine Aminotransferase 19 U/L (13-56); Albumin 1.6 G/DL (3.4-5.0); Alkaline Phosphatase 117 U/L (45-117); Aspartate Amino Transferase 19 U/L (0-37); Bilirubin,Total < 0.39 MG/DL (0.20-1.00); Blood Urea Nitrogen 17 MG/DL (7-18); Calcium 8.7 MG/DL (8.5-10.1); Carbon Dioxide 27 MMOL/L (21-32); Estimated Glom Filtration Rate 64 ML/MIN; Glucose 154 MG/DL (74-106); Osmolality,Calculated 281.5 MOS/KG (273-304); Potassium 4.3 MMOL/L (3.5-5.1); Sodium 139 MMOL/L (136-145); Total Protein 6.1 G/DL (6.4-8.2)
[2021-09-28] MEDS: PANTOPRAZOLE 40 MG TABLET PO SCH (07:13)
[2021-09-28] MEDS: INSULIN LISPRO 100 UNIT/ML SUBCUT SCH ×4 (09:01→22:49)
[2021-09-28] MEDS: NOVOLOG FLEXPEN SUBCUT SCH ×3 (09:01→16:51)
[2021-09-28] MEDS: METHENAMINE HIPPURATE 1 GM TABLET PO SCH ×2 (09:02→22:57)
[2021-09-28] MEDS: ENOXAPARIN 40 MG/0.4 ML SYRINGE SUBCUT SCH (09:02)
[2021-09-28] MEDS: MULTIVITAMIN (CENTRUM) TABLET PO SCH (09:03)
[2021-09-28] MEDS: BISOPROLOL 5 MG TABLET PO SCH (09:03)
[2021-09-28] MEDS: ASPIRIN EC 81 MG TABLET PO SCH (09:03)
[2021-09-28] MEDS: CLOPIDOGREL 75 MG TABLET PO SCH (09:03)
[2021-09-28] MEDS: LOSARTAN 50 MG TABLET PO SCH (09:04)
[2021-09-28] MEDS: FOLIC ACID 1 MG TABLET PO SCH (09:04)
[2021-09-28] MEDS: LEVOFLOXACIN 500 MG TABLET PO SCH (09:04)
[2021-09-28] MEDS: OXYBUTYNIN 5 MG TABLET PO SCH (09:04)
[2021-09-28] MEDS: DOCUSATE SODIUM 100 MG CAPSULE PO SCH ×2 (09:07→22:55)
[2021-09-28] MEDS: MAGNESIUM HYDROXIDE SUSP 30 ML UDCUP PO SCH ×2 (15:49→22:54)
[2021-09-28] MEDS: FLUTICASONE 50 MCG NASAL SPRAY 16 GM BOTTLE BOTH NARES SCH (15:49)
[2021-09-28] MEDS: DULoxetine 30 MG CAPSULE PO SCH (22:54)
[2021-09-28] MEDS: SERTRALINE 50 MG TABLET PO SCH (22:56)
[2021-09-28] MEDS: TRESIBA 60 UNIT SUBCUT SCH (22:56)
[2021-09-28] MEDS: GABAPENTIN 300 MG CAPSULE PO PRN (22:57)
[2021-09-28] MEDS: BACLOFEN 10 MG TABLET PO SCH (22:57)
[2021-09-28] MEDS: ATORVASTATIN 80 MG TABLET PO SCH (22:58)
[2021-09-28] MEDS: amLODIPine 5 MG TABLET PO SCH (22:58)
[2021-09-29] MEDS: ALBUTEROL/IPRATROPIUM 3 ML NEB RESP TX SCH ×4 (01:30→18:57)
[2021-09-29 05:42] LABS: Basophils # 0.1 10*3/uL (0.0-0.2); Basophils % 0.6 % (0.0-0.8); Eosinophils # 0.4 10*3/uL (0.0-0.87); Eosinophils % 4.2 % (0.00-10.9); Hematocrit 31.1 VOL% (35.7-47.0); Hemoglobin 9.9 GM/DL (12.0-16.0); Immature Granulocytes % 0.6 %; Immature Granulocytes Absolute 0.05 #; Lymphocytes # 1.9 10*3/uL (1.4-4.0); Lymphocytes % 20.9 % (21.3-54.2); Mean Corpuscular HGB Conc 31.8 GM/DL (32-36); Mean Platelet Volume 9.9 FL (9.6-12.0); Monocytes % 5.6 % (1.7-12.7); Neutrophils % 68.1 % (38.7-73.9); Platelet Count 463 T/CUMM (130-400); Red Blood Count 3.14 MC/CUMM (3.8-5.5); Red Cell Distribution Width 14.1 % (9.3-17.3); White Blood Count 8.9 T/CUMM (4-12)
[2021-09-29 05:58] LABS: Calcium 8.2 MG/DL (8.5-10.1); Osmolality,Calculated 280.8 MOS/KG (273-304)
[2021-09-29] MEDS: SODIUM CHLORIDE 0.45% 1,000 ML IV SCH (07:00)
[2021-09-29] MEDS: PANTOPRAZOLE 40 MG TABLET PO SCH (07:46)
[2021-09-29] MEDS: NOVOLOG FLEXPEN SUBCUT SCH ×3 (08:16→16:59)
[2021-09-29] MEDS: BISOPROLOL 5 MG TABLET PO SCH (08:29)
[2021-09-29] MEDS: MAGNESIUM HYDROXIDE SUSP 30 ML UDCUP PO SCH ×2 (08:29→20:22)
[2021-09-29] MEDS: LOSARTAN 50 MG TABLET PO SCH (08:29)
[2021-09-29] MEDS: LEVOFLOXACIN 500 MG TABLET PO SCH (08:29)
[2021-09-29] MEDS: ENOXAPARIN 40 MG/0.4 ML SYRINGE SUBCUT SCH ×2 (08:29→09:59)
[2021-09-29] MEDS: FOLIC ACID 1 MG TABLET PO SCH (08:29)
[2021-09-29] MEDS: CLOPIDOGREL 75 MG TABLET PO SCH (08:30)
[2021-09-29] MEDS: MULTIVITAMIN (CENTRUM) TABLET PO SCH (08:30)
[2021-09-29] MEDS: OXYBUTYNIN 5 MG TABLET PO SCH (08:30)
[2021-09-29] MEDS: ASPIRIN EC 81 MG TABLET PO SCH (08:30)
[2021-09-29] MEDS: METHENAMINE HIPPURATE 1 GM TABLET PO SCH ×2 (08:30→20:22)
[2021-09-29] MEDS: DOCUSATE SODIUM 100 MG CAPSULE PO SCH ×2 (08:31→20:24)
[2021-09-29] MEDS: FLUTICASONE 50 MCG NASAL SPRAY 16 GM BOTTLE BOTH NARES SCH (08:31)
[2021-09-29] MEDS: INSULIN LISPRO 100 UNIT/ML SUBCUT SCH ×4 (09:57→20:30)
[2021-09-29] MEDS ORDERED: FUROSEMIDE 40 MG/4 ML VIAL IV ONE (11:00)
[2021-09-29] MEDS: ATORVASTATIN 80 MG TABLET PO SCH (20:22)
[2021-09-29] MEDS: BACLOFEN 10 MG TABLET PO SCH (20:22)
[2021-09-29] MEDS: DULoxetine 30 MG CAPSULE PO SCH (20:22)
[2021-09-29] MEDS: amLODIPine 5 MG TABLET PO SCH (20:23)
[2021-09-29] MEDS: SERTRALINE 50 MG TABLET PO SCH (20:23)
[2021-09-29] MEDS: TRESIBA 60 UNIT SUBCUT SCH (20:30)
[2021-09-30] MEDS: ALBUTEROL/IPRATROPIUM 3 ML NEB RESP TX SCH ×4 (00:10→19:00)
[2021-09-30] MEDS: OXYBUTYNIN 5 MG TABLET PO SCH (09:57)
[2021-09-30] MEDS: FLUTICASONE 50 MCG NASAL SPRAY 16 GM BOTTLE BOTH NARES SCH (09:57)
[2021-09-30] MEDS: LEVOFLOXACIN 500 MG TABLET PO SCH (09:57)
[2021-09-30] MEDS: FOLIC ACID 1 MG TABLET PO SCH (09:57)
[2021-09-30] MEDS: PANTOPRAZOLE 40 MG TABLET PO SCH (09:57)
[2021-09-30] MEDS: ASPIRIN EC 81 MG TABLET PO SCH (09:57)
[2021-09-30] MEDS: BISOPROLOL 5 MG TABLET PO SCH (09:57)
[2021-09-30] MEDS: MULTIVITAMIN (CENTRUM) TABLET PO SCH (09:57)
[2021-09-30] MEDS: DOCUSATE SODIUM 100 MG CAPSULE PO SCH ×2 (09:57→20:50)
[2021-09-30] MEDS: LOSARTAN 50 MG TABLET PO SCH (09:57)
[2021-09-30] MEDS: METHENAMINE HIPPURATE 1 GM TABLET PO SCH ×2 (09:57→20:50)
[2021-09-30] MEDS: CLOPIDOGREL 75 MG TABLET PO SCH (09:57)
[2021-09-30] MEDS: INSULIN LISPRO 100 UNIT/ML SUBCUT SCH ×4 (10:38→20:50)
[2021-09-30] MEDS: NOVOLOG FLEXPEN SUBCUT SCH ×3 (10:39→16:56)
[2021-09-30] MEDS: MAGNESIUM HYDROXIDE SUSP 30 ML UDCUP PO SCH ×2 (10:42→20:50)
[2021-09-30] MEDS: ENOXAPARIN 40 MG/0.4 ML SYRINGE SUBCUT SCH (10:42)
[2021-09-30] MEDS: cloNIDine 0.1 MG TABLET PO PRN (12:29)
[2021-09-30] MEDS: TRESIBA 60 UNIT SUBCUT SCH (20:50)
[2021-09-30] MEDS: DULoxetine 30 MG CAPSULE PO SCH (20:50)
[2021-09-30] MEDS: amLODIPine 5 MG TABLET PO SCH (20:50)
[2021-09-30] MEDS: BACLOFEN 10 MG TABLET PO SCH (20:50)
[2021-09-30] MEDS: ATORVASTATIN 80 MG TABLET PO SCH (20:50)
[2021-09-30] MEDS: SERTRALINE 50 MG TABLET PO SCH (20:50)
[2021-10-01] MEDS: ALBUTEROL/IPRATROPIUM 3 ML NEB RESP TX SCH ×4 (00:56→19:20)
[2021-10-01] MEDS: ASPIRIN EC 81 MG TABLET PO SCH (08:59)
[2021-10-01] MEDS: DOCUSATE SODIUM 100 MG CAPSULE PO SCH ×3 (08:59→21:36)
[2021-10-01] MEDS: METHENAMINE HIPPURATE 1 GM TABLET PO SCH (08:59)
[2021-10-01] MEDS: LEVOFLOXACIN 500 MG TABLET PO SCH (09:00)
[2021-10-01] MEDS: BISOPROLOL 5 MG TABLET PO SCH (09:00)
[2021-10-01] MEDS: LOSARTAN 50 MG TABLET PO SCH (09:00)
[2021-10-01] MEDS: PANTOPRAZOLE 40 MG TABLET PO SCH (09:00)
[2021-10-01] MEDS: OXYBUTYNIN 5 MG TABLET PO SCH (09:00)
[2021-10-01] MEDS: METHOTREXATE 2.5 MG TABLET PO SCH (09:00)
[2021-10-01] MEDS: MULTIVITAMIN (CENTRUM) TABLET PO SCH (09:01)
[2021-10-01] MEDS: CLOPIDOGREL 75 MG TABLET PO SCH (09:01)
[2021-10-01] MEDS: FOLIC ACID 1 MG TABLET PO SCH (09:01)
[2021-10-01] MEDS: FLUTICASONE 50 MCG NASAL SPRAY 16 GM BOTTLE BOTH NARES SCH (09:09)
[2021-10-01] MEDS: INSULIN LISPRO 100 UNIT/ML SUBCUT SCH ×4 (09:40→21:37)
[2021-10-01] MEDS: NOVOLOG FLEXPEN SUBCUT SCH ×3 (09:40→17:49)
[2021-10-01] MEDS: ENOXAPARIN 40 MG/0.4 ML SYRINGE SUBCUT SCH (09:41)
[2021-10-01] MEDS: MAGNESIUM HYDROXIDE SUSP 30 ML UDCUP PO SCH ×2 (09:42→21:38)
[2021-10-01] MEDS: DULoxetine 30 MG CAPSULE PO SCH (21:36)
[2021-10-01] MEDS: SERTRALINE 50 MG TABLET PO SCH (21:37)
[2021-10-01] MEDS: ATORVASTATIN 80 MG TABLET PO SCH (21:37)
[2021-10-01] MEDS: BACLOFEN 10 MG TABLET PO SCH (21:37)
[2021-10-01] MEDS: amLODIPine 5 MG TABLET PO SCH (21:37)
[2021-10-01] MEDS: TRESIBA 60 UNIT SUBCUT SCH (21:38)
[2021-10-02] MEDS: ALBUTEROL/IPRATROPIUM 3 ML NEB RESP TX SCH ×4 (00:09→20:10)
[2021-10-02] MEDS: LOSARTAN 50 MG TABLET PO SCH (08:38)
[2021-10-02] MEDS: LEVOFLOXACIN 500 MG TABLET PO SCH (08:38)
[2021-10-02] MEDS: BISOPROLOL 5 MG TABLET PO SCH (08:38)
[2021-10-02] MEDS: MULTIVITAMIN (CENTRUM) TABLET PO SCH (08:38)
[2021-10-02] MEDS: ASPIRIN EC 81 MG TABLET PO SCH (08:38)
[2021-10-02] MEDS: CLOPIDOGREL 75 MG TABLET PO SCH (08:38)
[2021-10-02] MEDS: FOLIC ACID 1 MG TABLET PO SCH (08:39)
[2021-10-02] MEDS: PANTOPRAZOLE 40 MG TABLET PO SCH (08:39)
[2021-10-02] MEDS: OXYBUTYNIN 5 MG TABLET PO SCH (08:39)
[2021-10-02] MEDS: INSULIN LISPRO 100 UNIT/ML SUBCUT SCH ×4 (08:41→21:50)
[2021-10-02] MEDS: NOVOLOG FLEXPEN SUBCUT SCH ×3 (08:42→17:03)
[2021-10-02] MEDS: DOCUSATE SODIUM 100 MG CAPSULE PO SCH ×2 (08:42→21:49)
[2021-10-02] MEDS: ENOXAPARIN 40 MG/0.4 ML SYRINGE SUBCUT SCH (08:42)
[2021-10-02] MEDS: FLUTICASONE 50 MCG NASAL SPRAY 16 GM BOTTLE BOTH NARES SCH (08:43)
[2021-10-02] MEDS: MAGNESIUM HYDROXIDE SUSP 30 ML UDCUP PO SCH ×2 (08:43→21:50)
[2021-10-02] MEDS: cloNIDine 0.1 MG TABLET PO PRN (16:19)
[2021-10-02] MEDS: SERTRALINE 50 MG TABLET PO SCH (21:49)
[2021-10-02] MEDS: BACLOFEN 10 MG TABLET PO SCH (21:49)
[2021-10-02] MEDS: DULoxetine 30 MG CAPSULE PO SCH (21:49)
[2021-10-02] MEDS: ATORVASTATIN 80 MG TABLET PO SCH (21:49)
[2021-10-02] MEDS: amLODIPine 5 MG TABLET PO SCH (21:49)
[2021-10-02] MEDS: TRESIBA 60 UNIT SUBCUT SCH (21:50)
[2021-10-03] MEDS: ALBUTEROL/IPRATROPIUM 3 ML NEB RESP TX SCH ×2 (01:00→07:20)
[2021-10-03] MEDS: OXYBUTYNIN 5 MG TABLET PO SCH (09:52)
[2021-10-03] MEDS: LOSARTAN 50 MG TABLET PO SCH (09:52)
[2021-10-03] MEDS: CLOPIDOGREL 75 MG TABLET PO SCH (09:52)
[2021-10-03] MEDS: FOLIC ACID 1 MG TABLET PO SCH (09:52)
[2021-10-03] MEDS: LEVOFLOXACIN 500 MG TABLET PO SCH (09:52)
[2021-10-03] MEDS: BISOPROLOL 5 MG TABLET PO SCH (09:53)
[2021-10-03] MEDS: MULTIVITAMIN (CENTRUM) TABLET PO SCH (09:53)
[2021-10-03] MEDS: ASPIRIN EC 81 MG TABLET PO SCH (09:53)
[2021-10-03] MEDS: MAGNESIUM HYDROXIDE SUSP 30 ML UDCUP PO SCH (09:56)
[2021-10-03] MEDS: INSULIN LISPRO 100 UNIT/ML SUBCUT SCH ×2 (09:57→13:55)
[2021-10-03] MEDS: DOCUSATE SODIUM 100 MG CAPSULE PO SCH (09:57)
[2021-10-03] MEDS: PANTOPRAZOLE 40 MG TABLET PO SCH (11:58)
[2021-10-03] MEDS: FLUTICASONE 50 MCG NASAL SPRAY 16 GM BOTTLE BOTH NARES SCH (12:00)
[2021-10-03] MEDS: ENOXAPARIN 40 MG/0.4 ML SYRINGE SUBCUT SCH (12:07)
[2021-10-03] MEDS: NOVOLOG FLEXPEN SUBCUT SCH ×2 (12:08→12:09)
[2021-10-03 12:17] VITALS: BP 162/58
== END 2021-10-03 14:28 | disposition home or self-care (01) | DRG 194 ==
LOC: N.5E 15:21
PROVIDERS: ADMIT Family Medicine; ATTEND Family Medicine

== ENCOUNTER 2022-07-05 11:47 | Inpatient (IN) ==
[2022-07-05 12:40] LABS: Basophils # 0.1 10*3/uL (0.0-0.2); Basophils % 0.5 % (0.0-0.8); Eosinophils # 0.3 10*3/uL (0.0-0.87); Eosinophils % 2.8 % (0.00-10.9); Hemoglobin 9.8 GM/DL (12.0-16.0); Immature Granulocytes % 0.4 %; Immature Granulocytes Absolute 0.04 #; Lymphocytes # 2.1 10*3/uL (1.4-4.0); Lymphocytes % 21.8 % (21.3-54.2); Mean Corpuscular HGB Conc 31.6 GM/DL (32-36); Mean Corpuscular Volume 97.5 FL (87-102); Mean Platelet Volume 9.7 FL (9.6-12.0); Monocytes # 0.8 10*3/uL (0.11-0.8); Monocytes % 8.7 % (1.7-12.7); Neutrophils % 65.8 % (38.7-73.9); Platelet Count 311 T/CUMM (130-400); Red Blood Count 3.18 MC/CUMM (3.8-5.5); Red Cell Distribution Width 14.6 % (9.3-17.3); White Blood Count 9.5 T/CUMM (4-12)
[2022-07-05 12:55] LABS: Alanine Aminotransferase 17 U/L (13-56); Albumin 2.5 G/DL (3.4-5.0); Alkaline Phosphatase 132 U/L (45-117); Aspartate Amino Transferase 22 U/L (0-37); Bilirubin,Total < 0.39 MG/DL (0.20-1.00); Blood Urea Nitrogen 20 MG/DL (7-18); Calcium 8.3 MG/DL (8.5-10.1); Carbon Dioxide 31 MMOL/L (21-32); Chloride 106 MMOL/L (98-107); Glucose 207 MG/DL (74-106); Osmolality,Calculated 289.3 MOS/KG (273-304); Potassium 4.2 MMOL/L (3.5-5.1); Sodium 141 MMOL/L (136-145); Total Protein 6.6 G/DL (6.4-8.2)
[2022-07-05] MEDS ORDERED: hydrALAZINE 20 MG/1 ML VIAL ONE (13:04)
[2022-07-05] MEDS ORDERED: hydrALAZINE 20 MG/1 ML VIAL IV STA (13:09)
[2022-07-05] MEDS ORDERED: niCARdipine INJ 25 MG in SODIUM CHLORIDE 0.9% 240 ML IV PRN (13:11)
[2022-07-05 13:21] LABS: Hyaline Casts,Urine 5 /LPF (0-3); Mucus,Urine Occasional /LPF (Occasional); RBC,Urine 2 /HPF (0-4); Squamous Epithelial Cell,Urine Occasional /HPF (0-10)
[2022-07-05 13:22] LABS: Glucose,Urine (UA) 250 mg/dL (Negative); Ketones,Urine Negative (Negative); Nitrite,Urine Negative (Negative); Protein,Urine >=300 mg/dL (Negative); Urine Appearance Clear (Clear); Urine Color Yellow (Yellow); Urine pH 7.5 (4.5-8.0)
[2022-07-05 13:23] LABS: Bilirubin,Urine Negative (Negative); Blood, Urine Small mg/dL (Negative); Urine Urobilinogen 0.2 eU/dL (<2.0)
[2022-07-05] MEDS ORDERED: FUROSEMIDE 40 MG/4 ML VIAL IV STA (13:47)
[2022-07-05] MEDS ORDERED: ONDANSETRON 4 MG/2 ML VIAL IV ONE (13:52)
[2022-07-05] MEDS ORDERED: FUROSEMIDE 100 MG/10 ML VIAL IV STA (13:52)
[2022-07-05] MEDS ORDERED: PROMETHAZINE 25 MG/1 ML VIAL IM STA (14:36)
[2022-07-05] MEDS: amLODIPine 5 MG TABLET PO SCH (16:32)
[2022-07-05] MEDS: LEVOFLOXACIN INJ 750 MG/150 ML PREMIX IV SCH (16:34)
[2022-07-05] MEDS: BISOPROLOL 5 MG TABLET PO SCH (16:37)
[2022-07-05] MEDS: INSULIN LISPRO 100 UNIT/ML SUBCUT SCH ×2 (16:55→20:20)
[2022-07-05] MEDS: DULoxetine 30 MG CAPSULE PO SCH (20:20)
[2022-07-05] MEDS: ENOXAPARIN 40 MG/0.4 ML SYRINGE SUBCUT SCH (20:20)
[2022-07-05] MEDS: SERTRALINE 50 MG TABLET PO SCH (23:27)
[2022-07-06 03:22] LABS: ABG Base Excess 3.9 MMOL/L (-2.5-2.5); ABG HCO3 27.9 MMOL/L (20-26); ABG Oxygen Saturation 98.5 % (95-100); ABG PCO2 57.6 MM HG (35-48); ABG PH 7.337 (7.35-7.45); ABG TCO2 28.6 MMOL/L (23-27)
[2022-07-06 04:21] LABS: Basophils % 0.4 % (0.0-0.8); Eosinophils # 0.1 10*3/uL (0.0-0.87); Eosinophils % 0.6 % (0.00-10.9); Hematocrit 27.7 VOL% (35.7-47.0); Hemoglobin 8.6 GM/DL (12.0-16.0); Immature Granulocytes % 0.5 %; Immature Granulocytes Absolute 0.04 #; Lymphocytes # 1.8 10*3/uL (1.4-4.0); Lymphocytes % 21.7 % (21.3-54.2); Mean Corpuscular Volume 99.3 FL (87-102); Mean Platelet Volume 10.1 FL (9.6-12.0); Monocytes # 0.7 10*3/uL (0.11-0.8); Monocytes % 8.8 % (1.7-12.7); Platelet Count 290 T/CUMM (130-400); Red Blood Count 2.79 MC/CUMM (3.8-5.5); Red Cell Distribution Width 14.7 % (9.3-17.3); White Blood Count 8.4 T/CUMM (4-12)
[2022-07-06 04:51] LABS: Alanine Aminotransferase 14 U/L (13-56); Alkaline Phosphatase 114 U/L (45-117); Aspartate Amino Transferase 19 U/L (0-37); Bilirubin,Total < 0.39 MG/DL (0.20-1.00); Blood Urea Nitrogen 23 MG/DL (7-18); Calcium 8.8 MG/DL (8.5-10.1); Carbon Dioxide 29 MMOL/L (21-32); Chloride 105 MMOL/L (98-107); Glucose 104 MG/DL (74-106); Osmolality,Calculated 280.5 MOS/KG (273-304); Phosphorous 3.4 MG/DL (2.5-4.9); Potassium 4.2 MMOL/L (3.5-5.1); Sodium 139 MMOL/L (136-145); Total Protein 6.1 G/DL (6.4-8.2)
[2022-07-06] MEDS: INSULIN LISPRO 100 UNIT/ML SUBCUT SCH ×4 (08:33→20:19)
[2022-07-06] MEDS ORDERED: BISOPROLOL 5 MG TABLET PO SCH (09:00)
[2022-07-06] MEDS: BACLOFEN 10 MG TABLET PO SCH (09:18)
[2022-07-06] MEDS: ASPIRIN EC 81 MG TABLET PO SCH (09:18)
[2022-07-06] MEDS: amLODIPine 5 MG TABLET PO SCH (09:18)
[2022-07-06] MEDS: MULTIVITAMIN (CENTRUM) TABLET PO SCH (09:19)
[2022-07-06] MEDS: BISOPROLOL 5 MG TABLET PO SCH (09:19)
[2022-07-06] MEDS: OXYBUTYNIN 5 MG TABLET PO SCH (09:19)
[2022-07-06] MEDS: FOLIC ACID 1 MG TABLET PO SCH (09:19)
[2022-07-06] MEDS: CLOPIDOGREL 75 MG TABLET PO SCH (09:19)
[2022-07-06] MEDS: SERTRALINE 50 MG TABLET PO SCH (20:16)
[2022-07-06] MEDS: ENOXAPARIN 40 MG/0.4 ML SYRINGE SUBCUT SCH (20:16)
[2022-07-06] MEDS: DOCUSATE SODIUM 100 MG CAPSULE PO SCH (20:16)
[2022-07-06] MEDS: DULoxetine 30 MG CAPSULE PO SCH (20:16)
[2022-07-06] MEDS: ATORVASTATIN 80 MG TABLET PO SCH (20:27)
[2022-07-07 03:37] LABS: Arterial Base Excess iSTAT 2 MMOL/L (-2.5-2.5); Arterial Bicarbonate iSTAT 28.5 MMOL/L (20-26); Arterial O2 Saturation iSTAT 96 % (95-100); Arterial PCO2 iSTAT 54 MM HG (35-48); Arterial PO2 iSTAT 91 MM HG (80-95); Arterial Total CO2 iSTAT 30 MMO/L (23-27); Arterial pH iSTAT 7.332 (7.35-7.45)
[2022-07-07 04:27] LABS: Basophils % 0.5 % (0.0-0.8); Eosinophils # 0.3 10*3/uL (0.0-0.87); Eosinophils % 3.3 % (0.00-10.9); Hematocrit 28.3 VOL% (35.7-47.0); Hemoglobin 8.9 GM/DL (12.0-16.0); Immature Granulocytes % 0.2 %; Immature Granulocytes Absolute 0.02 #; Lymphocytes # 1.7 10*3/uL (1.4-4.0); Mean Corpuscular HGB Conc 31.4 GM/DL (32-36); Mean Corpuscular Volume 100.7 FL (87-102); Monocytes # 0.9 10*3/uL (0.11-0.8); Monocytes % 10.1 % (1.7-12.7); Neutrophils % 66.9 % (38.7-73.9); Platelet Count 321 T/CUMM (130-400); Red Blood Count 2.81 MC/CUMM (3.8-5.5); White Blood Count 8.7 T/CUMM (4-12)
[2022-07-07 04:50] LABS: Risk Ratio 4.06; VLDL Cholesterol 31.6 MG/DL
[2022-07-07 05:14] LABS: Calcium 8.6 MG/DL (8.5-10.1); Osmolality,Calculated 278.1 MOS/KG (273-304); Potassium 4.3 MMOL/L (3.5-5.1)
[2022-07-07] MEDS: INSULIN LISPRO 100 UNIT/ML SUBCUT SCH ×4 (08:17→20:30)
[2022-07-07] MEDS: hydrALAZINE 25 MG TABLET PO SCH ×3 (08:30→20:29)
[2022-07-07] MEDS: ASPIRIN EC 81 MG TABLET PO SCH (08:30)
[2022-07-07] MEDS: FOLIC ACID 1 MG TABLET PO SCH (08:30)
[2022-07-07] MEDS: OXYBUTYNIN 5 MG TABLET PO SCH (08:30)
[2022-07-07] MEDS: MULTIVITAMIN (CENTRUM) TABLET PO SCH (08:30)
[2022-07-07] MEDS: BACLOFEN 10 MG TABLET PO SCH (08:30)
[2022-07-07] MEDS: BISOPROLOL 5 MG TABLET PO SCH (08:30)
[2022-07-07] MEDS: DOCUSATE SODIUM 100 MG CAPSULE PO SCH (08:30)
[2022-07-07] MEDS: amLODIPine 5 MG TABLET PO SCH (08:30)
[2022-07-07] MEDS: CLOPIDOGREL 75 MG TABLET PO SCH (08:31)
[2022-07-07] MEDS: LEVOFLOXACIN INJ 750 MG/150 ML PREMIX IV SCH (15:45)
[2022-07-07] MEDS: DULoxetine 30 MG CAPSULE PO SCH (20:29)
[2022-07-07] MEDS: SERTRALINE 50 MG TABLET PO SCH (20:30)
[2022-07-07] MEDS: ENOXAPARIN 40 MG/0.4 ML SYRINGE SUBCUT SCH (20:30)
[2022-07-07] MEDS: ATORVASTATIN 80 MG TABLET PO SCH (20:30)
[2022-07-07] MEDS ORDERED: DOCUSATE SODIUM 100 MG CAPSULE PO SCH (21:00)
[2022-07-08 03:52] LABS: Arterial Base Excess iSTAT 2 MMOL/L (-2.5-2.5); Arterial Bicarbonate iSTAT 28.2 MMOL/L (20-26); Arterial O2 Saturation iSTAT 86 % (95-100); Arterial PCO2 iSTAT 52 MM HG (35-48); Arterial PO2 iSTAT 56 MM HG (80-95); Arterial Total CO2 iSTAT 30 MMO/L (23-27); Arterial pH iSTAT 7.344 (7.35-7.45)
[2022-07-08 05:02] LABS: Basophils % 0.3 % (0.0-0.8); Eosinophils # 0.2 10*3/uL (0.0-0.87); Eosinophils % 1.8 % (0.00-10.9); Hematocrit 27.6 VOL% (35.7-47.0); Hemoglobin 8.4 GM/DL (12.0-16.0); Immature Granulocytes % 0.3 %; Immature Granulocytes Absolute 0.03 #; Lymphocytes # 1.6 10*3/uL (1.4-4.0); Mean Corpuscular HGB Conc 30.4 GM/DL (32-36); Mean Platelet Volume 9.8 FL (9.6-12.0); Monocytes % 11.3 % (1.7-12.7); Neutrophils % 68.3 % (38.7-73.9); Platelet Count 329 T/CUMM (130-400); Red Blood Count 2.76 MC/CUMM (3.8-5.5); Red Cell Distribution Width 14.7 % (9.3-17.3); White Blood Count 8.7 T/CUMM (4-12)
[2022-07-08 05:25] LABS: Calcium 8.6 MG/DL (8.5-10.1); Potassium 4.2 MMOL/L (3.5-5.1)
[2022-07-08] MEDS ORDERED: MAGNESIUM HYDROXIDE SUSP 30 ML UDCUP PO PRN (06:49)
[2022-07-08] MEDS: BACLOFEN 10 MG TABLET PO SCH (08:46)
[2022-07-08] MEDS: CLOPIDOGREL 75 MG TABLET PO SCH (08:46)
[2022-07-08] MEDS: FOLIC ACID 1 MG TABLET PO SCH (08:46)
[2022-07-08] MEDS: DOCUSATE SODIUM 100 MG CAPSULE PO SCH (08:46)
[2022-07-08] MEDS: BISOPROLOL 5 MG TABLET PO SCH (08:46)
[2022-07-08] MEDS: OXYBUTYNIN 5 MG TABLET PO SCH (08:46)
[2022-07-08] MEDS: ASPIRIN EC 81 MG TABLET PO SCH (08:46)
[2022-07-08] MEDS: MULTIVITAMIN (CENTRUM) TABLET PO SCH (08:46)
[2022-07-08] MEDS: hydrALAZINE 25 MG TABLET PO SCH ×3 (08:46→20:13)
[2022-07-08] MEDS: amLODIPine 5 MG TABLET PO SCH (08:46)
[2022-07-08] MEDS: INSULIN LISPRO 100 UNIT/ML SUBCUT SCH ×4 (08:47→20:05)
[2022-07-08] MEDS ORDERED: amLODIPine 2.5 MG TABLET PO ONE (10:52)
[2022-07-08] MEDS ORDERED: MAGNESIUM HYDROXIDE SUSP 30 ML UDCUP PO ONE (15:41)
[2022-07-08] MEDS ORDERED: SODIUM PHOSPHATE ENEMA 133 ML BOTTLE RECTAL ONE (15:42)
[2022-07-08] MEDS: ALBUTEROL/IPRATROPIUM 3 ML NEB RESP TX SCH (18:50)
[2022-07-08] MEDS ORDERED: LACTULOSE 20 GM/30 ML UDCUP PO ONE (19:49)
[2022-07-08] MEDS: DULoxetine 30 MG CAPSULE PO SCH (20:13)
[2022-07-08] MEDS: ATORVASTATIN 80 MG TABLET PO SCH (20:13)
[2022-07-08] MEDS: ENOXAPARIN 40 MG/0.4 ML SYRINGE SUBCUT SCH (20:13)
[2022-07-08] MEDS: SERTRALINE 50 MG TABLET PO SCH (20:13)
[2022-07-09] MEDS: ALBUTEROL/IPRATROPIUM 3 ML NEB RESP TX SCH ×4 (00:15→19:13)
[2022-07-09 04:52] LABS: Arterial Base Excess iSTAT 3 MMOL/L (-2.5-2.5); Arterial Bicarbonate iSTAT 29.5 MMOL/L (20-26); Arterial O2 Saturation iSTAT 96 % (95-100); Arterial PCO2 iSTAT 56 MM HG (35-48); Arterial PO2 iSTAT 93 MM HG (80-95); Arterial Total CO2 iSTAT 31 MMO/L (23-27); Arterial pH iSTAT 7.332 (7.35-7.45)
[2022-07-09 05:46] LABS: Basophils % 0.4 % (0.0-0.8); Eosinophils # 0.3 10*3/uL (0.0-0.87); Eosinophils % 3.6 % (0.00-10.9); Hemoglobin 8.6 GM/DL (12.0-16.0); Immature Granulocytes % 0.4 %; Immature Granulocytes Absolute 0.03 #; Lymphocytes # 1.5 10*3/uL (1.4-4.0); Lymphocytes % 17.9 % (21.3-54.2); Mean Corpuscular HGB Conc 30.7 GM/DL (32-36); Mean Corpuscular Volume 100.4 FL (87-102); Monocytes % 11.7 % (1.7-12.7); Platelet Count 385 T/CUMM (130-400); Red Blood Count 2.79 MC/CUMM (3.8-5.5); Red Cell Distribution Width 14.6 % (9.3-17.3); White Blood Count 8.4 T/CUMM (4-12)
[2022-07-09 06:04] LABS: Calcium 9.1 MG/DL (8.5-10.1); Potassium 4.2 MMOL/L (3.5-5.1)
[2022-07-09] MEDS ORDERED: SODIUM PHOSPHATE ENEMA 133 ML BOTTLE RECTAL ONE (07:50)
[2022-07-09] MEDS: INSULIN LISPRO 100 UNIT/ML SUBCUT SCH ×4 (08:46→20:58)
[2022-07-09] MEDS ORDERED: INFLUENZA VIRUS VACCINE 0.5 ML SYRINGE IM ONE (09:00)
[2022-07-09] MEDS: CLOPIDOGREL 75 MG TABLET PO SCH (09:00)
[2022-07-09] MEDS: ASPIRIN EC 81 MG TABLET PO SCH (09:00)
[2022-07-09] MEDS: BACLOFEN 10 MG TABLET PO SCH (09:00)
[2022-07-09] MEDS: hydrALAZINE 25 MG TABLET PO SCH ×3 (09:00→20:58)
[2022-07-09] MEDS: BISOPROLOL 5 MG TABLET PO SCH (09:00)
[2022-07-09] MEDS: MULTIVITAMIN (CENTRUM) TABLET PO SCH (09:00)
[2022-07-09] MEDS: amLODIPine 5 MG TABLET PO SCH (09:00)
[2022-07-09] MEDS: FOLIC ACID 1 MG TABLET PO SCH (09:00)
[2022-07-09] MEDS: DOCUSATE SODIUM 100 MG CAPSULE PO SCH (09:01)
[2022-07-09] MEDS: OXYBUTYNIN 5 MG TABLET PO SCH (09:01)
[2022-07-09] MEDS: LEVOFLOXACIN INJ 750 MG/150 ML PREMIX IV SCH (15:54)
[2022-07-09] MEDS: ENOXAPARIN 40 MG/0.4 ML SYRINGE SUBCUT SCH (20:57)
[2022-07-09] MEDS: ATORVASTATIN 80 MG TABLET PO SCH (20:58)
[2022-07-09] MEDS: SERTRALINE 50 MG TABLET PO SCH (20:58)
[2022-07-09] MEDS: DULoxetine 30 MG CAPSULE PO SCH (20:58)
[2022-07-10] MEDS: ALBUTEROL/IPRATROPIUM 3 ML NEB RESP TX SCH ×4 (00:20→19:50)
[2022-07-10 04:48] LABS: Arterial Base Excess iSTAT 6 MMOL/L (-2.5-2.5); Arterial Bicarbonate iSTAT 30.9 MMOL/L (20-26); Arterial O2 Saturation iSTAT 96 % (95-100); Arterial PCO2 iSTAT 52 MM HG (35-48); Arterial PO2 iSTAT 88 MM HG (80-95); Arterial Total CO2 iSTAT 32 MMO/L (23-27); Arterial pH iSTAT 7.385 (7.35-7.45)
[2022-07-10 05:37] LABS: Basophils % 0.5 % (0.0-0.8); Eosinophils # 0.3 10*3/uL (0.0-0.87); Hemoglobin 8.7 GM/DL (12.0-16.0); Immature Granulocytes % 0.4 %; Immature Granulocytes Absolute 0.03 #; Lymphocytes # 1.4 10*3/uL (1.4-4.0); Lymphocytes % 18.3 % (21.3-54.2); Mean Corpuscular HGB Conc 31.1 GM/DL (32-36); Mean Platelet Volume 9.8 FL (9.6-12.0); Monocytes % 12.7 % (1.7-12.7); Neutrophils % 64.1 % (38.7-73.9); Platelet Count 413 T/CUMM (130-400); Red Cell Distribution Width 14.4 % (9.3-17.3); White Blood Count 7.6 T/CUMM (4-12)
[2022-07-10 05:59] LABS: Calcium 8.5 MG/DL (8.5-10.1); Osmolality,Calculated 277.1 MOS/KG (273-304); Potassium 4.4 MMOL/L (3.5-5.1)
[2022-07-10] MEDS: OXYBUTYNIN 5 MG TABLET PO SCH (09:59)
[2022-07-10] MEDS: ASPIRIN EC 81 MG TABLET PO SCH (09:59)
[2022-07-10] MEDS: BACLOFEN 10 MG TABLET PO SCH (09:59)
[2022-07-10] MEDS: hydrALAZINE 25 MG TABLET PO SCH ×3 (09:59→20:39)
[2022-07-10] MEDS: amLODIPine 5 MG TABLET PO SCH (09:59)
[2022-07-10] MEDS: MULTIVITAMIN (CENTRUM) TABLET PO SCH (09:59)
[2022-07-10] MEDS: DOCUSATE SODIUM 100 MG CAPSULE PO SCH (09:59)
[2022-07-10] MEDS: FOLIC ACID 1 MG TABLET PO SCH (09:59)
[2022-07-10] MEDS: BISOPROLOL 5 MG TABLET PO SCH (10:00)
[2022-07-10] MEDS: CLOPIDOGREL 75 MG TABLET PO SCH (10:00)
[2022-07-10] MEDS: INSULIN LISPRO 100 UNIT/ML SUBCUT SCH ×4 (10:00→20:56)
[2022-07-10] MEDS: DULoxetine 30 MG CAPSULE PO SCH (20:39)
[2022-07-10] MEDS: ATORVASTATIN 80 MG TABLET PO SCH (20:39)
[2022-07-10] MEDS: SERTRALINE 50 MG TABLET PO SCH (20:40)
[2022-07-10] MEDS: ENOXAPARIN 40 MG/0.4 ML SYRINGE SUBCUT SCH (20:43)
[2022-07-11] MEDS: ALBUTEROL/IPRATROPIUM 3 ML NEB RESP TX SCH ×4 (00:22→18:55)
[2022-07-11 04:04] LABS: Arterial Base Excess iSTAT 4 MMOL/L (-2.5-2.5); Arterial Bicarbonate iSTAT 30.7 MMOL/L (20-26); Arterial O2 Saturation iSTAT 98 % (95-100); Arterial PCO2 iSTAT 57 MM HG (35-48); Arterial PO2 iSTAT 111 MM HG (80-95); Arterial Total CO2 iSTAT 32 MMO/L (23-27); Arterial pH iSTAT 7.337 (7.35-7.45)
[2022-07-11 05:45] LABS: Basophils # 0.1 10*3/uL (0.0-0.2); Basophils % 0.8 % (0.0-0.8); Eosinophils # 0.6 10*3/uL (0.0-0.87); Eosinophils % 7.2 % (0.00-10.9); Hematocrit 26.8 VOL% (35.7-47.0); Hemoglobin 8.4 GM/DL (12.0-16.0); Immature Granulocytes % 0.5 %; Immature Granulocytes Absolute 0.04 #; Lymphocytes # 1.6 10*3/uL (1.4-4.0); Lymphocytes % 20.3 % (21.3-54.2); Mean Corpuscular HGB Conc 31.3 GM/DL (32-36); Mean Corpuscular Volume 99.6 FL (87-102); Mean Platelet Volume 9.9 FL (9.6-12.0); Monocytes % 13.2 % (1.7-12.7); Platelet Count 418 T/CUMM (130-400); Red Blood Count 2.69 MC/CUMM (3.8-5.5); Red Cell Distribution Width 14.4 % (9.3-17.3); White Blood Count 7.7 T/CUMM (4-12)
[2022-07-11] MEDS ORDERED: LACTULOSE 20 GM/30 ML UDCUP PO ONE (07:23)
[2022-07-11] MEDS: INSULIN LISPRO 100 UNIT/ML SUBCUT SCH ×4 (09:53→20:18)
[2022-07-11] MEDS: hydrALAZINE 25 MG TABLET PO SCH ×3 (09:53→20:17)
[2022-07-11] MEDS: CLOPIDOGREL 75 MG TABLET PO SCH (09:53)
[2022-07-11] MEDS: amLODIPine 5 MG TABLET PO SCH (09:53)
[2022-07-11] MEDS: BISOPROLOL 5 MG TABLET PO SCH (09:54)
[2022-07-11] MEDS: FOLIC ACID 1 MG TABLET PO SCH (09:54)
[2022-07-11] MEDS: DOCUSATE SODIUM 100 MG CAPSULE PO SCH (09:54)
[2022-07-11] MEDS: ASPIRIN EC 81 MG TABLET PO SCH (09:54)
[2022-07-11] MEDS: BACLOFEN 10 MG TABLET PO SCH (09:54)
[2022-07-11] MEDS: MULTIVITAMIN (CENTRUM) TABLET PO SCH (09:54)
[2022-07-11] MEDS: OXYBUTYNIN 5 MG TABLET PO SCH (09:54)
[2022-07-11] MEDS ORDERED: ONDANSETRON 4 MG/2 ML VIAL IV PRN (11:15)
[2022-07-11] MEDS: LEVOFLOXACIN INJ 750 MG/150 ML PREMIX IV SCH (15:10)
[2022-07-11] MEDS: SERTRALINE 50 MG TABLET PO SCH (20:17)
[2022-07-11] MEDS: ENOXAPARIN 40 MG/0.4 ML SYRINGE SUBCUT SCH (20:18)
[2022-07-11] MEDS: DULoxetine 30 MG CAPSULE PO SCH (20:18)
[2022-07-11] MEDS: ATORVASTATIN 80 MG TABLET PO SCH (20:18)
[2022-07-12] MEDS: ALBUTEROL/IPRATROPIUM 3 ML NEB RESP TX SCH ×4 (01:05→18:53)
[2022-07-12] MEDS: INSULIN LISPRO 100 UNIT/ML SUBCUT SCH ×4 (10:00→21:16)
[2022-07-12] MEDS: hydrALAZINE 25 MG TABLET PO SCH ×3 (10:01→21:15)
[2022-07-12] MEDS: BISOPROLOL 5 MG TABLET PO SCH (10:02)
[2022-07-12] MEDS: BACLOFEN 10 MG TABLET PO SCH (10:02)
[2022-07-12] MEDS: ASPIRIN EC 81 MG TABLET PO SCH (10:02)
[2022-07-12] MEDS: DOCUSATE SODIUM 100 MG CAPSULE PO SCH (10:02)
[2022-07-12] MEDS: amLODIPine 5 MG TABLET PO SCH (10:02)
[2022-07-12] MEDS: MULTIVITAMIN (CENTRUM) TABLET PO SCH (10:02)
[2022-07-12] MEDS: FOLIC ACID 1 MG TABLET PO SCH (10:02)
[2022-07-12] MEDS: CLOPIDOGREL 75 MG TABLET PO SCH (10:02)
[2022-07-12] MEDS: OXYBUTYNIN 5 MG TABLET PO SCH (10:03)
[2022-07-12] MEDS ORDERED: SODIUM PHOSPHATE ENEMA 133 ML BOTTLE RECTAL ONE (10:31)
[2022-07-12] MEDS ORDERED: MAGNESIUM HYDROXIDE SUSP 30 ML UDCUP PO ONE (10:31)
[2022-07-12] MEDS: DULoxetine 30 MG CAPSULE PO SCH (21:15)
[2022-07-12] MEDS: ATORVASTATIN 80 MG TABLET PO SCH (21:15)
[2022-07-12] MEDS: ENOXAPARIN 40 MG/0.4 ML SYRINGE SUBCUT SCH (21:15)
[2022-07-12] MEDS: SERTRALINE 50 MG TABLET PO SCH (21:16)
[2022-07-13] MEDS: ALBUTEROL/IPRATROPIUM 3 ML NEB RESP TX SCH ×3 (00:20→14:05)
[2022-07-13 08:02] LABS: Basophils # 0.1 10*3/uL (0.0-0.2); Basophils % 1.3 % (0.0-0.8); Eosinophils # 0.4 10*3/uL (0.0-0.87); Eosinophils % 5.5 % (0.00-10.9); Hematocrit 30.4 VOL% (35.7-47.0); Hemoglobin 9.1 GM/DL (12.0-16.0); Immature Granulocytes % 1.8 %; Immature Granulocytes Absolute 0.14 #; Lymphocytes # 1.8 10*3/uL (1.4-4.0); Lymphocytes % 22.5 % (21.3-54.2); Mean Corpuscular HGB Conc 29.9 GM/DL (32-36); Mean Corpuscular Volume 102.7 FL (87-102); Mean Platelet Volume 8.8 FL (9.6-12.0); Monocytes # 1.2 10*3/uL (0.11-0.8); Monocytes % 15.4 % (1.7-12.7); Neutrophils % 53.5 % (38.7-73.9); Platelet Count 419 T/CUMM (130-400); Red Blood Count 2.96 MC/CUMM (3.8-5.5); Red Cell Distribution Width 14.6 % (9.3-17.3)
[2022-07-13] MEDS: INSULIN LISPRO 100 UNIT/ML SUBCUT SCH ×2 (08:02→11:59)
[2022-07-13 08:24] LABS: Calcium 9.2 MG/DL (8.5-10.1); Potassium 5.3 MMOL/L (3.5-5.1)
[2022-07-13] MEDS: hydrALAZINE 25 MG TABLET PO SCH (09:56)
[2022-07-13] MEDS: ASPIRIN EC 81 MG TABLET PO SCH (09:56)
[2022-07-13] MEDS: BISOPROLOL 5 MG TABLET PO SCH (09:56)
[2022-07-13] MEDS: OXYBUTYNIN 5 MG TABLET PO SCH (09:56)
[2022-07-13] MEDS: FOLIC ACID 1 MG TABLET PO SCH (09:56)
[2022-07-13] MEDS: MULTIVITAMIN (CENTRUM) TABLET PO SCH (09:56)
[2022-07-13] MEDS: CLOPIDOGREL 75 MG TABLET PO SCH (09:56)
[2022-07-13] MEDS: DOCUSATE SODIUM 100 MG CAPSULE PO SCH (09:57)
[2022-07-13] MEDS: BACLOFEN 10 MG TABLET PO SCH (09:57)
[2022-07-13] MEDS: amLODIPine 5 MG TABLET PO SCH (09:57)
[2022-07-13] MEDS ORDERED: BISOPROLOL 5 MG TABLET PO ONE (11:29)
[2022-07-13 17:29] VITALS: BP 169/67
[2022-07-14] MEDS ORDERED: BISOPROLOL 5 MG TABLET PO SCH (09:00)
== END 2022-07-13 14:10 | DRG 193 ==
LOC: N.ED 11:47 → SUATTDRO 13:43 → N.EDINP 13:43 → N.ICU 16:23 → N.TELES 07-10 18:54
PROVIDERS: ADMIT Internal Medicine; ATTEND Family Medicine